=== PATIENT | male | born 2000 | race Caucasian/White ===

== ENCOUNTER 2023-12-23 07:28 | Emergency (ER) | payer OTHER, SELFPAY ==
[2023-12-23] VITALS (10 sets, daily range): BP systolic 82–114; BP diastolic 40–62; PULSE 73–160; RESP 15–28; TEMP 36.6; O2SAT 98; BMI 30.4
--- NOTE | ~2023-12-23 | XR_ITS ---
EXAMINATION: XR CHEST CLINICAL INFORMATION: Palpatations COMPARISON: None available. TECHNIQUE: Frontal view of the chest was obtained. FINDINGS: No significant abnormality is noted involving the heart, lungs, mediastinum, bony thorax or soft tissues. XR/XR chest 1V IMPRESSION: Unremarkable examination.
--- NOTE | 2023-12-23 07:40 | ECG_ITS ---
Test Reason : tachycardia Blood Pressure : / mmHG Vent. Rate : 142 BPM Atrial Rate : 142 BPM P-R Int : 210 ms QRS Dur : 086 ms QT Int : 286 ms P-R-T Axes : 022 084 018 degrees QTc Int : 439 ms Atrial fibrillation with rapid ventricular response Abnormal ECG No previous ECGs available Referred By: Dottie He Electronically Signed By:CARL PERRIN
[2023-12-23] MEDS: Metoprolol Tartrate 5 MG/5 ML VIAL IVPUSH ×2 (07:50→07:57)
--- NOTE | 2023-12-23 07:57 | ECG_ITS ---
Test Reason : tachy Blood Pressure : / mmHG Vent. Rate : 124 BPM Atrial Rate : 000 BPM P-R Int : 000 ms QRS Dur : 088 ms QT Int : 258 ms P-R-T Axes : 000 073 020 degrees QTc Int : 370 ms Atrial fibrillation with rapid ventricular response Abnormal ECG When compared with ECG of 23-DEC-2023 07:50, No significant changes seen Referred By: Dottie He Electronically Signed By:CARL PERRIN
--- NOTE | 2023-12-23 07:57 | ED_ITS ---
HPI - Arrhythmia/Palpitations General Chief Complaint: Arrhythmia/Palpitations Stated Complaint: Fast heart rate Time Seen by Provider: 12/23/23 07:35 Source: patient Mode of arrival: ambulatory Limitations: no limitations History of Present Illness HPI narrative: 23 yo male with no sig PMH but he notes his father has an irregular heart beat and is s/p ablation he also had a valve issue. He comes in as he was at home just getting ready for work when his heart started to race. He takes no drugs, no recent illness. He has no symptoms it came out of nowhere. This has never happened to him before. complaint: rapid heart beat and heart racing Onset (ago): minute(s) (30) Duration: constant Severity: severe Context: occurred during rest Associated symptoms: denies other symptoms Related Data Previous Rx's Medication Instructions Recorded metoprolol tartrate 25 mg tablet 12.5 mg (1/2 x 25 mg) PO BID #60 12/23/23 tabs Allergies Allergy/AdvReac Type Severity Reaction Status Date / Time No Known Allergies Allergy Unverified 07/13/20 17:20 [No Known Allergies*] Review of Systems 2 Review of Systems: Constitutional : No Weight loss, No Fever, No Chills ENT/Mouth : No sore throat, No Rhinorrhea Eyes: No Eye Pain, No Swelling Cardiovascular : no Chest Pain, pos SOB, no Dyspnea on Exertion, No Orthopnea, No Edema, pos Palpitations Respiratory : No Cough, No Sputum Gastrointestinal : no Nausea, No Vomiting, No Diarrhea, No abdominal Pain, No Hematochezia, No Melena Genitourinary : No Dysuria, No Urinary Frequency Musculoskeletal : No joint pain, No Myalgias, No Joint Swelling Skin : No Skin Lesions, No rash Neuro : No Weakness, No Numbness, No Dizziness, No Headache Psych : No Anxiety/Panic, No Depression All other systems reviewed and are negative [facility] Past Medical History Attestation statement: The following information was validated with the patient. Source: old records reviewed Medical History No pertinent past medical history Family History Family History (Updated 12/23/23 @ 09:25 by Jameson Ferrara MD) Father Arrhythmia H/O cardiac radiofrequency ablation Social History Social History (Updated 12/23/23 @ 09:25 by Jameson Ferrara MD) Alcohol intake: current Alcohol intake frequency: 0-2 drinks per day Patient Tobacco Use Status: Never used Tobacco Use of substances other than those prescribed or required for medical reasons: No Advance Directives: No Physical Exam 2 Vital Signs: Vital Signs: Last Vital Signs Temp 98 F 12/23/23 07:53 Pulse 73 12/23/23 11:49 Resp 28 H 12/23/23 11:49 BP 96/45 L 12/23/23 11:49 Pulse Ox 98 12/23/23 11:49 O2 Del Method Room Air 12/23/23 11:49 BMI result Body Mass Index 30.4 Appearance: Alert. Oriented X3. No acute distress. Eyes: Pupils equal, round and reactive to light. ENT: Pharynx normal. Neck: Normal inspection. Neck supple. CVS: irregular tachycardic heart rate and rhythm. Pulses normal. Respiratory: No respiratory distress. Breath sounds normal. Abdomen: Soft and nontender. Skin: Skin warm and dry. Normal skin color. Normal skin turgor. Extremities: No lower extremity edema. No calf ttp Neuro: Oriented X 3. No motor deficit. No sensory deficit. Course Course Course Narrative: 2nd EKG confirms afib HR maintaining below 120s cardiology notified 825am. pending normal labs start fleicanide 300mg and observe will figure out follow up and plan after medications metoprolol tartrate 50mg per korey 10am no cardioversion Reevaluation(s) Reevaluation #1: converted 1107am NSR okay to go before ECHO - given low BPs will put on 12.5mg BID and start dose tomorrow with parameters BP is on low side but has been he is asymptomatic Medications Administered Generic Name Dose Route Start Last Admin Trade Name Freq PRN Reason Stop Dose Admin Sodium Chloride 1,000 mls @ 999 mls/hr 12/23/23 11:15 12/23/23 11:05 Ns IV 12/23/23 12:15 999 mls/hr .Q1H1M MANOHAR Administration Discontinued Medications Generic Name Dose Route Start Last Admin Trade Name Freq PRN Reason Stop Dose Admin Flecainide Acetate 300 mg 12/23/23 08:46 12/23/23 09:25 Flecainide Acetate 50 Mg Tablet PO 12/23/23 08:47 300 mg ONCE ONE Administration Sodium Chloride 1,000 mls @ 999 mls/hr 12/23/23 08:00 12/23/23 08:01 Ns IV 12/23/23 09:00 999 mls/hr .Q1H1M MANOHAR Administration Metoprolol Tartrate 5 mg 12/23/23 07:54 12/23/23 07:50 Metoprolol Tartrate 5 Mg/5 Ml Vial IVPUSH 12/23/23 07:55 5 mg ONCE ONE Administration Metoprolol Tartrate 5 mg 12/23/23 07:54 12/23/23 07:57 Metoprolol Tartrate 5 Mg/5 Ml Vial IVPUSH 12/23/23 07:55 5 mg ONCE ONE Administration Metoprolol Tartrate 50 mg 12/23/23 09:59 12/23/23 10:08 Metoprolol Tartrate 50 Mg Tablet PO 12/23/23 10:00 50 mg ONCE ONE Administration Protocol Medical Decision Making Medical Decision Making MDM Narrative: 23 yo male with no sig PMH here with abrupt onset palpitations without sig symptoms other than heart racing tele showed irregular rate and ?flutter. He is asymptomatic. We tried vagal maneuvers initially on arrival but then I noted irregularity and felt this wasn't SVT. Lopressor x 2 was given and flutter waves were seen. Labs ordered. 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 12/23/23 08:11 12/23/23 08:11 Labs: Lab Results 12/23/23 Range/Units 08:11 WBC 5.9 (4.8-10.8) X10*3/uL RBC 5.23 (4.60-5.80) X10*6/uL Hgb 16.0 (14.0-18.0) g/dl Hct 43.7 (42.0-52.0) % MCV 83.6 (80.0-98.0) fL MCH 30.6 (27.0-33.0) pg MCHC 36.6 H (31.0-36.0) g/dl RDW 13.1 (11.0-16.0) % Plt Count 266 (160-400) X10*3/uL MPV 9.8 (9.4-12.4) fL Immature Gran % (Auto) 0.5 H (0.0-0.4) % Neut % (Auto) 66.0 (45-73) % Lymph % (Auto) 21.2 (20-40) % [place] % (Auto) 9.1 (2-11) % Eos % (Auto) 2.5 (0-4) % Baso % (Auto) 0.7 (0-2) % Lymph # (Auto) 1.3 (1.2-4.9) X10*3/uL [place] # (Auto) 0.5 (0.1-1.2) X10*3/uL Eos # (Auto) 0.2 (0.0-0.4) X10*3/uL Baso # (Auto) 0.0 (0.0-0.2) X10*3/uL Abs Immat Gran (auto) 0.03 (0.00-0.03) X10*3/uL Absolute Neuts (auto) 3.9 (2.0-8.3) x10*3/uL Absolute Nucleated RBC 0.000 (0.0-0.012) X10*3/uL Nucleated RBC % (auto) 0.0 (0.0-0.2) /100WBC Sodium 139 (135-145) mmol/L Potassium 3.9 (3.3-5.1) mmol/L Chloride 110 H (96-108) mmol/L Carbon Dioxide 24 (22-29) mmol/L Anion Gap 9 L (12-20) BUN 15 (9-16) mg/dL Creatinine 0.75 (0.5-1.4) mg/dL Estim Creat Clear Calc 170.4 Estimated GFR > 60 Random Glucose 113 (60-115) mg/dL Calcium 8.6 (8.4-10.2) mg/dL Magnesium 2.1 (1.6-2.6) mg/dL Total Bilirubin 0.7 (0.0-1.0) mg/dL Direct Bilirubin 0.3 (0.0-0.5) mg/dL AST 20 (5-37) U/L ALT 18 (0-40) U/L Alkaline Phosphatase 57 (39-117) U/L Troponin I High Sens < 2.7 (<3.5-35.0) ng/L Total Protein 6.5 (6.5-8.0) g/dL Albumin 3.8 (3.5-5.0) g/dL TSH 1.26 (0.32-4.0) uIU/mL Ethyl Alcohol < 10 mg/dL COVID-19 (ZEESHAN) Negative (Negative) COVID-19 Clin Com See Note Independent Interpretation I performed an independent interpretation of an: EKG and Plain X-Ray (normal ) Interpretation: Rate: 142 Rhythm: irregular tachcyardia Pingree: normal Normal QRS complex. ST T wave : no VAL qTC: 439 prior studies: no prior The study has been interpreted contemporaneously by me. EKG #2 Rate: 124 Rhythm: afib Pingree: normal Normal QRS complex. ST T wave : normal no VAL qTC: 370 prior studies: changed from prior The study has been interpreted contemporaneously by me. EKG #3 Rate: 80 Rhythm: NSR P[place]ree: normal Normal P waves. Normal NANCY. Normal QRS complex. ST T wave : inverted t waves V1, no VAL qTC: 417 prior studies: changed converted to NSR The study has been interpreted contemporaneously by me. . Radiology Impression Discussion of test interpretation with radiology: I have reviewed the radiologist's reading. Prescription Management I considered prescription management with: Other Critical Care Time Critical Care Time Critical Care Time: Yes Total Critical Care Time: 60 Attestation: repeat IV lopressor, consultation, repeat EKG, bedside assessments I attest to this time spent taking care of the patient Discharge Plan Discharge Clinical Impression: Atrial fibrillation Qualifiers: Atrial fibrillation type: unspecified Qualified Code(s): I48.91 - Unspecified atrial fibrillation Patient Disposition: Home, Self-Care Instructions: Metoprolol (By mouth), A-fib (Atrial Fibrillation) (ED) Additional Instructions: stay hydrated. get a blood pressure cuff. get a watch if possible or device that can help monitor your heart rate. you will be started on a new medication to keep your heart rate lower. you should return for elevated HR again > 120, chest pain, dizziness, shortness of breath. do not take the metoprolol if blood pressure is below 100 systolic (top number) or heart rate is below 60. only take 12.5mg daily if you feel dizzy or weak cardiology will call you to schedule appointment avoid alcohol, cocaine, caffeine intake, energy drinks, over the counter cold medications start the metoprolol tomorrow AM Prescriptions: New metoprolol tartrate 25 mg tablet 12.5 mg PO BID Qty: 60 0RF Rx Instructions: hold if blood pressure under 100 or less than 60 Stand Alone Forms: Work/School Release
[2023-12-23] MEDS: 0.9 % Sodium Chloride 1,000 ML 999 ML IV ×2 (08:01→11:05)
[2023-12-23 08:15] LABS: MANUAL DIFF FLAG NO
[2023-12-23 08:16] LABS: Basophils Percent Auto 0.7 % (0-2); Eosinophils Absolute Auto 0.2 X10*3/uL (0.0-0.4); Eosinophils Percent Auto 2.5 % (0-4); Hematocrit 43.7 % (42.0-52.0); Imm Gran Abs Auto 0.03 X10*3/uL (0.00-0.03); Imm Gran Pct Auto 0.5 % (0.0-0.4); Lymphocytes Absolute Auto 1.3 X10*3/uL (1.2-4.9); Lymphocytes Percent Auto 21.2 % (20-40); Mean Corpuscular HGB Conc 36.6 g/dl (31.0-36.0); Mean Corpuscular Hemoglobin 30.6 pg (27.0-33.0); Mean Corpuscular Volume 83.6 fL (80.0-98.0); Mean Platelet Volume 9.8 fL (9.4-12.4); Monocytes Absolute Auto 0.5 X10*3/uL (0.1-1.2); Monocytes Percent Auto 9.1 % (2-11); Neutrophils Absolute Auto 3.9 x10*3/uL (2.0-8.3); Platelet Count 266 X10*3/uL (160-400); Red Blood Count 5.23 X10*6/uL (4.60-5.80); Red Cell Distribution Width 13.1 % (11.0-16.0); White Blood Count 5.9 X10*3/uL (4.8-10.8)
[2023-12-23 08:40] LABS: Alanine Aminotransferase 18 U/L (0-40); Albumin Level 3.8 g/dL (3.5-5.0); Alkaline Phosphatase 57 U/L (39-117); Anion Gap 9 (12-20); Aspartate Amino Transferase 20 U/L (5-37); Bilirubin Direct 0.3 mg/dL (0.0-0.5); Bilirubin Total 0.7 mg/dL (0.0-1.0); Blood Urea Nitrogen 15 mg/dL (9-16); Calcium 8.6 mg/dL (8.4-10.2); Carbon Dioxide 24 mmol/L (22-29); Chloride 110 mmol/L (96-108); Creatinine Clr Calc Pharmacy 170.4; Estimated Glomerular Filt Rate > 60; Glucose Random 113 mg/dL (60-115); Magnesium 2.1 mg/dL (1.6-2.6); Potassium 3.9 mmol/L (3.3-5.1); Sodium 139 mmol/L (135-145); Total Protein 6.5 g/dL (6.5-8.0)
--- NOTE | 2023-12-23 08:40 | PM.CNCAR ---
History of Present Illness History of Present Illness Date of Service: 12/23/23 Chief complaint: Fast heart rate Narrative: This is a cardiology consultation regarding atrial fibrillation. Patient is generally healthy young male with no major issues. He states he was fine this morning but when he went to brush his teeth around 05:45, he started noticing heart fluttering. After that, he went to the ER and he is being currently evaluated. Initially, heart rate is almost 180/Min? or around that range and they thought was SVT but not clear. Then it seems that he tried vagal maneuvers and then some beta-blockers and they rather figured out it was more likely something like flutter or fibrillation. Patient himself does not have any history from cardiac standpoint. He states he is actually quite healthy and works out in the gym and has no symptoms whatsoever. Apart from palpitations he is otherwise feeling fine. His father had some sort of ablation in the past. They do not know all the details. Occasional alcohol use but he states he does not do binge drinking. Nonsmoker. Denies drugs. Review of Systems Review of Systems: Yes all other systems are reviewed and are negative Constitutional: Constitutional: Reports as per HPI and Reports no additional constitutional complaints Eyes: Eyes: Reports as per HPI and Denies no additional eye complaints ENT: Denies system reviewed and no additional complaints, except as documented and Reports as per HPI Cardiovascular: Cardiovascular: Reports as per HPI, Reports no additional cardiovascular complaints, Denies acrocyanosis, Denies cool extremities, Denies chest pain, Denies leg edema, Denies lightheadedness, Denies palpitations and Denies dyspnea Respiratory: Respiratory: Reports as per HPI, Denies no additional respiratory complaints and Denies dyspnea Gastrointestinal: Gastrointestinal: Reports as per HPI and Denies no additional gastrointestinal complaints Genitourinary: Genitourinary: Reports no additional male genitourinary complaints and Reports as per HPI Musculoskeletal: Musculoskeletal: Reports no additional musculoskeletal complaints and Reports as per HPI Integumentary/Breasts: Skin/Breast: Reports system reviewed and no additional complaints, except as docu Neurologic: Reports system reviewed and no additional complaints, except as documented and Reports as per HPI Psychiatric: Psychiatric: Reports no additional psychiatric complaints and Reports as per HPI Endocrine: Endocrine: Reports no additional endocrine complaints, Reports as per HPI and Denies palpitations Hematologic/Lymphatic: Hematologic/Lymphatic: Reports no additional hematologic/lymphatic complaints and Reports as per HPI Allergic/Immunologic: Allergic/Immunologic: Reports no additional allergic/immunologic complaints and Reports as per HPI [facility] Past Medical History Medical History No pertinent past medical history Family History Family History (Updated 12/23/23 @ 09:25 by Jameson Ferrara MD) Father Arrhythmia H/O cardiac radiofrequency ablation Social History Social History (Updated 12/23/23 @ 09:25 by Jameson Ferrara MD) Alcohol intake: current Alcohol intake frequency: 0-2 drinks per day Patient Tobacco Use Status: Never used Tobacco Meds Allergies Allergy/AdvReac Type Severity Reaction Status Date / Time No Known Allergies Allergy Unverified 07/13/20 17:20 [No Known Allergies*] Active Medications: Current Medications Sodium Chloride (Ns) 1,000 mls @ 999 mls/hr IV .Q1H1M MANOHAR Stop: 12/23/23 09:00 Last Admin: 12/23/23 08:01 Dose: 999 mls/hr Physical Exam Vital Signs: Vital Signs: Last Vital Signs Temp 98 F 12/23/23 07:53 Pulse 122 H 12/23/23 08:00 Resp 18 12/23/23 08:00 BP 98/59 L 12/23/23 08:00 Pulse Ox 98 12/23/23 08:00 BMI result Body Mass Index 30.4 Const: General: comfortable and no acute distress Orientation/consciousness: patient oriented x3 HEENT: Other: Unremarkable Head: Yes normal to inspection Neck: Neck: Yes normal visual inspection Chest: Chest palpation & inspection: normal inspection of the chest Resp: Auscultation: clear to auscultation bilaterally Cardio: Palpation: normal PMI Heart sounds: S1 normal heart sound present, S2 normal heart sound present, no gallops, no murmurs and no rubs GI: Palpation (GI): Soft to palpation Back/Spine/Pelvis: Other: unremarkable Skin: General skin exam: no rashes or lesions noted Neuro: General: patient oriented x3 Extrem: General: Yes normal to inspection Psych: Mental Status: mental status grossly normal Objective Labs and Meds 12/23/23 08:11 12/23/23 08:11 Lab results: Laboratory Results - last 24 hr 12/23/23 08:11 WBC 5.9 RBC 5.23 Hgb 16.0 Hct 43.7 MCV 83.6 MCH 30.6 MCHC 36.6 H RDW 13.1 Plt Count 266 MPV 9.8 Immature Gran % (Auto) 0.5 H Neut % (Auto) 66.0 Lymph % (Auto) 21.2 [place] % (Auto) 9.1 Eos % (Auto) 2.5 Baso % (Auto) 0.7 Lymph # (Auto) 1.3 [place] # (Auto) 0.5 Eos # (Auto) 0.2 Baso # (Auto) 0.0 Abs Immat Gran (auto) 0.03 Absolute Neuts (auto) 3.9 Absolute Nucleated RBC 0.000 Nucleated RBC % (auto) 0.0 ECG Interpretation: EKG with atrial fibrillation rate of 142/Min. Repeat EKGs also similar. Imaging Radiologist's impression: Impressions Chest X-Ray 12/23/23 08:18 IMPRESSION: Unremarkable examination. Assessment and Plan (1) Atrial fibrillation with rapid ventricular response: Status: Acute Plan Labs show unremarkable high sensitivity troponin. Either alcohol level less than 10. Other labs are mostly okay. COVID is negative. Chest x-ray unremarkable. We can try flecainide 300 mg p.o. now. If that does not help, may need cardioversion. Echocardiogram. Discussed with Dr. He. Procedures Date of Service Date of Service: 12/23/23
[2023-12-23 08:43] LABS: Troponin-I High Sensitivity < 2.7 ng/L (<3.5-35.0)
[2023-12-23 08:53] LABS: Ethanol < 10 mg/dL
[2023-12-23 08:56] LABS: TSH reflex Free T4 1.26 uIU/mL (0.32-4.0)
[2023-12-23 08:57] LABS: COVID-19 Test Negative (Negative); IDNOW Serial# 152EDE1D
[2023-12-23] MEDS: Flecainide Acetate 50 MG TABLET 300 MG PO (09:25)
--- NOTE | 2023-12-23 09:27 | PC.NURSE ---
A FLUTTER ON MONITOR, SKIN WPD, MEDICATED ORDERED, NAD, NO COMPLAINTS
[2023-12-23] MEDS: Metoprolol Tartrate 50 MG TABLET PO (10:08)
--- NOTE | 2023-12-23 11:07 | ECG_ITS ---
Test Reason : CONVERSION TO NSR Blood Pressure : / mmHG Vent. Rate : 080 BPM Atrial Rate : 080 BPM P-R Int : 178 ms QRS Dur : 102 ms QT Int : 362 ms P-R-T Axes : 077 091 037 degrees QTc Int : 417 ms Normal sinus rhythm Rightward axis Borderline ECG When compared with ECG of 23-DEC-2023 08:05, Sinus rhythm has replaced Atrial fibrillation Vent. rate has decreased BY 44 BPM Referred By: Dottie He Electronically Signed By:CARL PERRIN
--- NOTE | 2023-12-23 11:11 | PC.NURSE ---
SR ON MONITOR, NAD,. NO COMPLAINTS
== END 2023-12-23 11:57 | disposition home or self-care (01) ==
PROVIDERS: Emergency Provider Emergency Medicine; PCP Pediatrics
DX: I48.91 Unspecified atrial fibrillation (principal); I49.9 Cardiac arrhythmia, unspecified; R00.2 Palpitations; Z11.52 Encounter for screening for COVID-19; Z79.899 Other long term (current) drug therapy
CPT/HCPCS: 71045; 80048; 80076; 80307; 83735; 84443; 84484; 85025; 87635; 93005; 99285

== ENCOUNTER → 2023-12-23 08:04 | Outpatient (BNV) | payer OTHER, SELFPAY | PROVIDERS: Emergency Provider Emergency Medicine; PCP Pediatrics; Visit Provider Internal Medicine | DX: I48.91 Unspecified atrial fibrillation (principal); R94.31 Abnormal electrocardiogram [ECG] [EKG] | CPT/HCPCS: 93010; 99223 ==

== ENCOUNTER → 2024-01-16 14:59 | Outpatient (REF) | payer OTHER, SELFPAY ==
--- NOTE | 2024-01-16 15:02 | HM_ITS ---
* Total monitoring time 3 days. * Underlying rhythm is sinus with an average rate of 82/Min. Range 43 to 171/Min. * Rare supraventricular ectopy. * One episode of ventricular couplets. * No significant pauses or AV blocks. * Patient marker used 3 times in association with sinus rhythm and sinus tachycardia. No diary events. MTDD
== END ==
LOC: HO.CARD 14:59
PROVIDERS: Visit Provider Internal Medicine
DX: I48.91 Unspecified atrial fibrillation (principal)
CPT/HCPCS: 93242

== ENCOUNTER → 2024-01-16 15:02 | Outpatient (BNV) | payer OTHER, SELFPAY | PROVIDERS: Visit Provider Internal Medicine | DX: I48.91 Unspecified atrial fibrillation (principal) | CPT/HCPCS: 93244 ==

== ENCOUNTER → 2024-01-21 08:59 | Outpatient (REF) | payer OTHER, SELFPAY ==
--- NOTE | 2024-01-21 09:02 | CA_ITS ---
Transthoracic Echocardiogram Patient (Last, First, Middle): Cameron Schroeder W Gender: Male Date of : 2000 Age: 23 Procedure Date: 01/21/2024 Procedure Type: Transthoracic Echocardiogram Location: OP Height: 170.18 cm Weight: 88.45 kg BSA: 2.00 m2 Heart Rate: bpm BP: 108 / 68 mmHg Police Clerk: TO Referring MD: Jameson Ferrara MD Water Tanker Driver: Adam Ascencio MD Symptoms: I48.91 - Unspecified atrial fibrillation Study Quality: Good ECG Rhythm: Sinus Conclusions: - 1. Mildly reduced LV ejection fraction 45-50% 2. Normal cardiac valvular Doppler 3. No gross pericardial effusion Findings Procedure Information Contrast agent, definity, is being given per protocol without apparent complications. Left Ventricle Normal left ventricular cavity size. There is normal left ventricular wall thickness. The left ventricular systolic function is mildly decreased. The visually estimated ejection fraction is between 45-50%. Spectral Doppler is indicative of a normal filling pattern. Peak GLS is -15.3%, mildly reduced. Right Ventricle Normal right ventricular cavity size and systolic function. Atria The left atrium is normal in size. There is no evidence of interatrial shunt. The right atrium is normal in size. Aortic Valve Normal aortic valve structure and function. There is no aortic valve stenosis. There is no aortic valve regurgitation. Mitral Valve Normal mitral valve structure and function. There is trace mitral valve regurgitation. There is no mitral valve stenosis. Pulmonic Valve The pulmonic valve is likely normal. There is trace to mild pulmonic valve regurgitation. Tricuspid Valve Normal tricuspid valve structure. There is no tricuspid valve regurgitation. Tricuspid regurgitation envelope is inadequate for calculation of right ventricular systolic pressure. Normal right atrial pressure. Great Vessels All visible segments of the aorta are normal in size. The pulmonary artery was not well visualized. Venous The inferior vena cava is normal in size and collapses greater than 50% with inspiration. Pericardium/Pleural There is no evidence of pericardial effusion. Prior Study Comparison No prior study available for comparison. Measurements 2D Linear Measurements IVSd: 0.77 0.6-0.9/0.6-1.0 cm LVIDd: 5.23 3.9-5.3/4.2-5.9 cm LVIDd Index: 2.62 2.4-3.2/2.2-3.1 cm/m2 LVIDs: 3.65 2.0-3.6 cm LVPWd: 0.85 0.7-1.1 cm LA Diam: 3.40 2.7-3.8/3.0-4.0 cm LAIDs Index: 1.70 1.5-2.3 cm/m2 LV Mass: 186.08 67-162/88-224 g LV Mass Index: 93.04 43-95/49-115 g/m2 LVOT Diam: 2.30 3.0+(-)1.3 cm 2D Systolic Function EF 4C: 46.00 >55% EF 2C: 49.30 >55% EF BiP: 48.10 >55% Mitral Valve MV Pk E: 0.66 MV PK A: 0.39 MV Decel Time: 202.00 E/A: 1.70 E'Lateral: 15.90 E'Medial: 9.36 E/E' Med: 7.00 E/E' Lat: 4.10 PHT: 59.00 MVA PHT: 3.73 Decel Oliver: 3.24 LVOT LVOT Pk Tip: 0.83 LVOT Mn Tip: 0.52 LVOT VTI: 0.16 LVOT Pk Grad: 3.00 LVOT Mn Grad: 1.00 LVOT Diam: 2.30 LVOT Area: 4.15 Diastolic Function MV Pk E: 0.66 MV Pk A: 0.39 E/A: 1.70 E'Medial: 9.36 E/E' Med: 7.00 E' Laterial: 15.90 E/E' Lat: 4.10 Right Ventricle TAPSE (mm): 18.00 TVS' Tip: 10.00 Tricuspid Valve RA Press: 3.00 Great Vessels Aorta Sinus of Valsalva: 3.33 2.0-3.5 cm Ao Asc: 3.00 2.1-3.4 cm Updated in Other Vendor System with Status of Final Adam Ascencio MD electronically signed on 01/21/2024 2:36:31 PM with status of Final
== END ==
LOC: HO.CARD 08:59
PROVIDERS: PCP Pediatrics; Visit Provider Internal Medicine
DX: I48.91 Unspecified atrial fibrillation (principal)
CPT/HCPCS: 93306; 93356; Q9957

== ENCOUNTER → 2024-01-21 09:02 | Outpatient (BNV) | payer OTHER, SELFPAY | PROVIDERS: PCP Pediatrics; Visit Provider Internal Medicine Cardiovascular Disease | DX: I48.91 Unspecified atrial fibrillation (principal) | CPT/HCPCS: 93306; 93356 ==

== ENCOUNTER 2024-01-23 15:01 | Outpatient (AMB) | payer OTHER, SELFPAY ==
--- NOTE | 2024-01-23 15:08 | A.OFFVIS_ITS ---
Intake Vital Signs 01/23/24 15:10 Height 5 ft 8 in Weight 191 lb BMI 29.0 BP 132/78 Blood Pressure Location Lt brachial Position Sitting Pulse 78 Intake Visit Reasons: inpatient follow up/ testing Intake Note: PT TURNED IN HOLTER ON 01/23/24 PT FEELS GOOD Allergies No Known Allergies [No Known Allergies*] Allergy (Unverified 07/13/20 17:20) Medication List - Last Reconciled 01/23/24 by Roxanne Palm NP metoprolol tartrate 12.5 mg (1/2 x 25 mg) PO BID HPI HPI Comments History of Present Illness Details 23-year-old male presents today to [facility]- after testing and being in the hospital. He was seen in the emergency room for fast heart rates and fluttering and was found to be in atrial fibrillation with rapid ventricular response. He reports he has had no fluttering, rapid rates, chest pains, dizziness, or shortness of breath. He was prescribed metoprolol and has been tolerating it. [facility] Medical History No pertinent past medical history Family History (Updated 12/23/23 @ 09:25 by Jameson Ferrara MD) Father Arrhythmia H/O cardiac radiofrequency ablation Social History (Updated 12/23/23 @ 09:25 by Jameson Ferrara MD) Alcohol intake: current Alcohol intake frequency: 0-2 drinks per day Patient Tobacco Use Status: Never used Tobacco Review of Systems Const Denies weakness ENT Denies dizziness Card Denies chest pain, Denies chest pain with activity, Denies syncope, Denies rapid heart rate, Denies pedal edema, Denies edema, Denies leg edema, Denies lightheadedness, Denies palpitations, Denies dyspnea, Denies dyspnea on exertion and Denies orthopnea Resp Denies cough, Denies dyspnea and Denies dyspnea on exertion GI Denies hematochezia and Denies change in stool character Musc Denies abnormal gait, Denies muscle cramps, Denies muscle weakness, Denies numbness, Denies radiating pain into limb and Denies tingling Neuro Denies abnormal gait, Denies dizziness, Denies syncope, Denies numbness, Denies tingling and Denies weakness Endo Denies palpitations Physical Exam Vital Signs: Last Vital Signs Pulse 78 01/23/24 15:10 BP 132/78 01/23/24 15:10 BMI result Body Mass Index 29.0 Const General: healthy appearing and no acute distress Orientation/consciousness: patient oriented x3 HEENT Head: Yes normal to inspection Eyes General: appearance normal, both eyes and all related structures Neck Neck: Yes normal visual inspection Chest Chest palpation & inspection: normal inspection of the chest Resp Effort & Inspection: normal respiratory effort Auscultation: clear to auscultation bilaterally Cardio Jugular venous distension: no JVD Palpation: normal PMI Rate: regular rate Rhythm: regular rhythm Heart sounds: S1 normal heart sound present, S2 normal heart sound present, no click, no gallops, no murmurs and no rubs GI Inspection: Yes normal to inspection Palpation (GI): Soft to palpation Skin General skin exam: no rashes or lesions noted Neuro General: patient oriented x3 Extrem General: Yes normal to inspection Psych Appearance: grossly normal Assessment & Plan Assessment & Plan (1) Atrial fibrillation with rapid ventricular response: Code(s): I48.91 - Unspecified atrial fibrillation Plan Patient returned holter today - will wait for results. Echocardiogram showed mildly reduced LV ejection fraction 45-50%. Will touch base with Dr. Ferrara regarding further testing and wait for the results. On metorpolol tartrate - continue for rate control - todays rate 78 bpm. Sinus by auscultation. Coding Level of Care Code Est Pt Level 3 (43655) Diagnoses Atrial fibrillation with rapid ventricular response I48.91
[2024-01-23 15:10] VITALS: BP 132/78; PULSE 78; BMI 29.0
== END 2024-01-23 15:42 | disposition home or self-care (01) ==
PROVIDERS: PCP Pediatrics; Visit Provider Nurse Practitioner
DX: I48.91 Unspecified atrial fibrillation (principal)
CPT/HCPCS: 99213

== ENCOUNTER → 2024-01-23 15:01 | Outpatient (BNVA) | payer OTHER, SELFPAY | PROVIDERS: PCP Pediatrics; Visit Provider Nurse Practitioner ==

== ENCOUNTER → 2024-03-02 15:55 | Outpatient (REF) | payer OTHER, SELFPAY | LOC: HO.SL 15:55 | PROVIDERS: PCP Pediatrics; Visit Provider Nurse Practitioner | DX: G47.10 Hypersomnia, unspecified (principal); R06.83 Snoring | CPT/HCPCS: 95806 ==

== ENCOUNTER → 2024-03-02 16:03 | Outpatient (BNV) | payer OTHER, SELFPAY | PROVIDERS: PCP Pediatrics; Visit Provider Internal Medicine | DX: R06.83 Snoring (principal); G47.10 Hypersomnia, unspecified | CPT/HCPCS: 95806 ==

== ENCOUNTER 2024-04-30 07:14 | Emergency (ER) | payer OTHER, SELFPAY ==
[2024-04-30] VITALS (13 sets, daily range): BP systolic 100–141; BP diastolic 63–88; PULSE 77–156; RESP 12–24; TEMP 36.5–36.9; O2SAT 96–100; BMI 30.4
--- NOTE | 2024-04-30 | ECG_ITS ---
Test Reason : afib Blood Pressure : / mmHG Vent. Rate : 131 BPM Atrial Rate : 000 BPM P-R Int : 000 ms QRS Dur : 088 ms QT Int : 258 ms P-R-T Axes : 000 073 012 degrees QTc Int : 380 ms Atrial fibrillation with rapid ventricular response Abnormal ECG When compared with ECG of 30-APR-2024 07:16, No significant change was found Referred By: Generic ED Physician Electronically Signed By:CARL PERRIN
--- NOTE | 2024-04-30 | ECG_ITS ---
Test Reason : palpitation Blood Pressure : / mmHG Vent. Rate : 123 BPM Atrial Rate : 000 BPM P-R Int : 000 ms QRS Dur : 088 ms QT Int : 266 ms P-R-T Axes : 000 072 009 degrees QTc Int : 380 ms Atrial fibrillation with rapid ventricular response Abnormal ECG When compared with ECG of 23-DEC-2023 11:17, Atrial fibrillation has replaced Sinus rhythm Vent. rate has increased BY 43 BPM Referred By: Kristina Taylor Electronically Signed By:CARL PERRIN
[2024-04-30 07:38] LABS: MANUAL DIFF FLAG NO
[2024-04-30 07:41] LABS: Basophils Absolute Auto 0.1 X10*3/uL (0.0-0.2); Eosinophils Absolute Auto 0.1 X10*3/uL (0.0-0.4); Eosinophils Percent Auto 1.6 % (0-4); Hematocrit 46.2 % (42.0-52.0); Hemoglobin 16.8 g/dl (14.0-18.0); Imm Gran Abs Auto 0.03 X10*3/uL (0.00-0.03); Imm Gran Pct Auto 0.4 % (0.0-0.4); Lymphocytes Absolute Auto 2.1 X10*3/uL (1.2-4.9); Lymphocytes Percent Auto 30.8 % (20-40); Mean Corpuscular HGB Conc 36.4 g/dl (31.0-36.0); Mean Corpuscular Hemoglobin 30.7 pg (27.0-33.0); Mean Corpuscular Volume 84.5 fL (80.0-98.0); Mean Platelet Volume 9.7 fL (9.4-12.4); Monocytes Absolute Auto 0.7 X10*3/uL (0.1-1.2); Neutrophils Absolute Auto 3.9 x10*3/uL (2.0-8.3); Neutrophils Percent Auto 56.2 % (45-73); Platelet Count 250 X10*3/uL (160-400); Red Blood Count 5.47 X10*6/uL (4.60-5.80); White Blood Count 6.9 X10*3/uL (4.8-10.8)
--- NOTE | 2024-04-30 07:43 | PC.NURSE ---
Pt here reporting he was seen in nov with new onset afib, pt reporting he followed up with cardiology and had a halter monitor, all of those times he has been in a NSR, they gave him PRN metoprolol to take if he felt that his HR was elevated again. Pt woke up this morning feeling palpitations, denies CP/SOB/n/v/d/grider. Pt HR is ranging from 101-156. Pt reports he had a couple of beers yesterday but denies drug use/change in activities from baseline.
--- NOTE | 2024-04-30 07:55 | ED.ARRPALP ---
HPI - Arrhythmia/Palpitations General Chief Complaint: Arrhythmia/Palpitations Stated Complaint: Fast heart rate Time Seen by Provider: 04/30/24 07:43 Source: patient Mode of arrival: ambulatory Limitations: no limitations History of Present Illness ED Provider: Dr. Austen Moses HPI narrative: 23-year-old male with a history of atrial fibrillation who presents emergency department for evaluation of palpitations. The patient states he woke up this morning he felt like his heart was skipping beats. He also states his heart was going fast and slow. The patient was 1st diagnosed with atrial fibrillation 12/23/2023. At that time he had an echocardiogram that revealed a reduced EF of 45-50%. Patient subsequently had a Holter monitor on 01/16/2024 which was unremarkable and a repeat echocardiogram which revealed no change in his EF. He had a sleep study for hypersomnia which was unremarkable. Patient states that he was scheduled for MRI of the heart which is scheduled for next week. He denied fever, chills, chest pain, shortness of breath, dyspnea on exertion, nausea, vomiting, lightheadedness or dizziness. Related Data Previous Rx's ?Medication ?Instructions ?Recorded metoprolol tartrate 25 mg tablet 12.5 mg (1/2 x 25 mg) PO BID #60 12/23/23 tabs apixaban 5 mg tablet (Eliquis) 5 mg PO Q12H 30 days #60 tabs 04/30/24 flecainide 50 mg tablet 50 mg PO Q12H 30 days #60 tabs 04/30/24 metoprolol tartrate 25 mg tablet 12.5 mg (1/2 x 25 mg) PO Q12H 30 04/30/24 days #30 tabs Allergies Allergy/AdvReac Type Severity Reaction Status Date / Time No Known Allergies Allergy Unverified 04/30/24 07:26 [No Known Allergies*] Review of Systems Review of Systems: Yes all other systems are reviewed and are negative PMFSH Past Medical History Medical History (Updated 04/30/24 @ 15:21 by Austen Moses MD) Cardiomyopathy No pertinent past medical history Family History Family History (Updated 12/23/23 @ 09:25 by Jameson Ferrara MD) Father Arrhythmia H/O cardiac radiofrequency ablation Social History Social History (Updated 12/23/23 @ 09:25 by Jameson Ferrara MD) Alcohol intake: current Alcohol intake frequency: holidays/special occasions only Alcohol type: beer Patient Tobacco Use Status: Never used Tobacco Advance Directives: No Physical Exam Vital Signs: Vital Signs: Last Vital Signs Temp 97.9 F 04/30/24 12:50 Pulse 77 04/30/24 14:59 Resp 12 04/30/24 14:59 BP 121/78 04/30/24 14:59 Pulse Ox 100 04/30/24 14:59 O2 Del Method Nasal Cannula 04/30/24 14:59 O2 Flow Rate 2 04/30/24 14:59 Oxygen Flow Rate 2 04/30/24 14:29 BMI result Body Mass Index 30.4 Vital signs were normal. Exam: General: Awake, alert in no distress Head: Normocephalic, atraumatic EENT: PERRL, Lids normal, sclera normal, conjunctiva normal, nose normal , ears normal, throat without erythema or exudates Neck: Supple, no adenopathy Lung: breath sounds symmetric, no wheezing, rales or rhonchi Chest: symmetric movement, nontender Heart: Irregularly irregular heart rate irregular irregular rhythm, normal S1, S2 no murmurs or rubs Abdomen: soft, non-tender, nondistended, normal bowel sounds Back: no vertebral tenderness, no CVAT Extremities: no deformities, moves all extremities symmetrically Neuro: Awake, alert, oriented, normal speech, cranial nerves intact, moves all extremities symmetrically Psych: Pleasant, cooperative Medications Administered Discontinued Medications Generic Name Dose Route Start Last Admin Trade Name Freq PRN Reason Stop Dose Admin Apixaban 5 mg 04/30/24 12:12 04/30/24 12:26 Apixaban 5 Mg Tablet PO 04/30/24 12:13 5 mg ONCE ONE Administration Diltiazem HCl 10 mg 04/30/24 08:18 04/30/24 08:27 Diltiazem Hcl 50 Mg/10 Ml Vial IVPUSH 04/30/24 08:19 10 mg STAT STA Administration Fentanyl 100 mcg 04/30/24 12:12 04/30/24 12:39 Fentanyl Citrate/Pf 100 Mcg/2 Ml Vial IVPUSH 04/30/24 12:13 Not Given ONCE ONE Protocol Fentanyl 100 mcg 04/30/24 14:03 04/30/24 14:08 Fentanyl Citrate/Pf 100 Mcg/2 Ml Vial IVPUSH 04/30/24 14:04 100 mcg ONCE ONE Administration Protocol Flecainide Acetate 300 mg 04/30/24 08:28 04/30/24 08:52 Flecainide Acetate 50 Mg Tablet PO 04/30/24 08:29 300 mg ONCE ONE Administration Sodium Chloride 1,000 mls @ 999 mls/hr 04/30/24 12:13 04/30/24 15:42 Ns IV 04/30/24 13:13 Infused .Q1H1M STA Infusion Ketamine HCl 90.718 mg 04/30/24 12:12 04/30/24 12:39 Ketamine Hcl/Ns 50 Mg/5 Ml Syringe 1 mg/kg (90.718 mg) 04/30/24 12:13 Not Given IVPUSH ONCE ONE Ketamine HCl 90.718 mg 04/30/24 14:03 04/30/24 14:08 Ketamine Hcl/Ns 50 Mg/5 Ml Syringe 1 mg/kg (90.718 mg) 04/30/24 14:04 90.718 mg IVPUSH Administration ONCE ONE Lorazepam 1 mg 04/30/24 15:04 04/30/24 15:08 Lorazepam 2 Mg/Ml Vial IVPUSH 04/30/24 15:05 1 mg STAT STA Administration Medical Decision Making Medical Decision Making MDM Narrative: 23-year-old male with a history of atrial fibrillation 1st diagnosed 12/23/2023 with a low EF of 45-50% who presents emergency department for evaluation palpitations. Vital signs revealed an elevated heart rate of 123 otherwise unremarkable pain Patient's physical exam and EKG are consistent with atrial fibrillation. Differential diagnosis: ?Includes but is not limited to myocardial infarction, myocardial ischemia, cardiomyopathy, atrial fibrillation, atrial flutter, electrolyte abnormalities, anemia, hyperthyroidism Following evaluation was ordered: CBC, CMP, PT/INR, PTT, magnesium, ethanol level, troponin, COVID-19, influenza, RSV Patient was initially treated with the following: Diltiazem 10 mg IV, flecainide 300 mg orally, normal saline x1 L Course: 15:31 My interpretation patient's laboratory evaluation is as follows: CBC was normal. PT/INR elevated 17.1 and 1.4. Ethanol was below detectable limits. COVID-19, influenza and RSV were negative. I did consult the patient's water plant pump operator supervisor, Dr. Ferrara who agreed with chemical cardioversion and if unsuccessful after 4 hours, proceed with electrical cardioversion. He also recommended giving Eliquis 5 mg orally. Patient did not cardiovert with oral flecainide after 4 hours of cardiac monitoring. Patient did however change from atrial fibrillation to an atrial flutter with a 3-[address] Ferrara and recommended 1-2 more hours of observed to see if the patient converts however he remained in atrial flutter. Therefore the patient was given procedural sedation with ketamine 1 milligram/kilogram IV and fentanyl 100 mcg IV. He was then successful cardioverted with 120 joules. The patient did have emergence phenomenon from ketamine and was given Ativan [address] Ferrara recommended that the patient be started on Eliquis 5 mg q.12 hours, flecainide 50 mg q.12 hours and continue on his metoprolol tartrate 12.5 mg q.12 hours. I did prescribe these medications for the patient. Patient was given verbal and printed instructions and discharged home Admission/Observation Consideration of admission/observation: Escalation of care including admission/observation considered Consult Healthcare Provider Management of the patient was discussed with: Cosmetic Surgeon (Stock Order Lister, Dr. Ferrara) Lab Data MDM Lab Attestation statement: I reviewed the patient's lab results. 04/30/24 07:33 04/30/24 07:33 Labs: Lab Results 04/30/24 04/30/24 Range/Units 07:33 08:40 WBC 6.9 (4.8-10.8) X10*3/uL RBC 5.47 (4.60-5.80) X10*6/uL Hgb 16.8 (14.0-18.0) g/dl Hct 46.2 (42.0-52.0) % MCV 84.5 (80.0-98.0) fL MCH 30.7 (27.0-33.0) pg MCHC 36.4 H (31.0-36.0) g/dl RDW 13.0 (11.0-16.0) % Plt Count 250 (160-400) X10*3/uL MPV 9.7 (9.4-12.4) fL Immature Gran % (Auto) 0.4 (0.0-0.4) % Neut % (Auto) 56.2 (45-73) % Lymph % (Auto) 30.8 (20-40) % [place] % (Auto) 10.0 (2-11) % Eos % (Auto) 1.6 (0-4) % Baso % (Auto) 1.0 (0-2) % Lymph # (Auto) 2.1 (1.2-4.9) X10*3/uL [place] # (Auto) 0.7 (0.1-1.2) X10*3/uL Eos # (Auto) 0.1 (0.0-0.4) X10*3/uL Baso # (Auto) 0.1 (0.0-0.2) X10*3/uL Abs Immat Gran (auto) 0.03 (0.00-0.03) X10*3/uL Absolute Neuts (auto) 3.9 (2.0-8.3) x10*3/uL Absolute Nucleated RBC 0.000 (0.0-0.012) X10*3/uL Nucleated RBC % (auto) 0.0 (0.0-0.2) /100WBC PT 17.1 H (11.1-13.3) SEC INR 1.4 H (0.9-1.1) Sodium 141 (135-145) mmol/L Potassium 4.2 (3.3-5.1) mmol/L Chloride 108 (96-108) mmol/L Carbon Dioxide 25 (22-29) mmol/L Anion Gap 12 (12-20) BUN 15 (9-16) mg/dL Creatinine 0.90 (0.5-1.4) mg/dL Estim Creat Clear Calc 142.0 Estimated GFR > 60 Random Glucose 95 (60-115) mg/dL Calcium 9.5 D (8.4-10.2) mg/dL Magnesium 2.1 (1.6-2.6) mg/dL Total Bilirubin 0.7 (0.0-1.0) mg/dL AST 19 (5-37) U/L ALT 26 (0-40) U/L Alkaline Phosphatase 56 (39-117) U/L Troponin I High Sens < 2.7 (<3.5-35.0) ng/L Total Protein 7.1 (6.5-8.0) g/dL Albumin 4.3 (3.5-5.0) g/dL TSH 2.27 (0.32-4.0) uIU/mL Ethyl Alcohol < 10 mg/dL Influenza Type A (PCR) NEGATIVE (Negative) Influenza Type B (PCR) NEGATIVE (Negative) RSV RNA Qual (PCR) NEGATIVE (Negative) SARS-CoV-2 RNA (RT-PCR) NEGATIVE (Negative) Independent Interpretation I performed an independent interpretation of an: EKG Interpretation: EKG 1: 07:16 hours: Atrial fibrillation with a ventricular rate of 123, normal QRS duration QTC interval, no ST segment elevation, no ST segment depression, no significant T-wave abnormalities EKG 2: 07:28 hours: Atrial fibrillation with a ventricular rate of 131, normal QRS duration and QTC interval, no ST segment elevation, no ST segment depression, no significant T-wave abnormalities EKG 3: 12:32 hours: Atrial flutter with a rate of 118, prolonged QRS duration with normal QTC interval, no ST segment elevation, no ST segment depression, no significant T-wave abnormalities EKG 4: 14:17 hours: Normal sinus rhythm with a rate of 91, normal [place] interval, prolonged QRS duration of 108 milliseconds, normal QTC intervals, no ST segment elevation, no ST segment depression, no significant T-wave abnormalities, no PACs, no PVCs Independent Historian Clinical information obtained from an independent historian. History obtained from or confirmed by: Parent (Mother and father) External Record Review External record reviewed: Office record Procedures Procedure Narrative Procedure Narrative: Electrical cardioversion with procedural sedation. I did discuss procedural sedation with ketamine and fentanyl with the patient as well as cardioversion. The patient gave signed written consent for both procedures. Patient was placed on a cardiac and O2 saturation monitor. He was given oxygen 2 L via nasal cannula. Patient was also placed on an end-tidal CO2 monitor. Respiratory therapy was present at all times during the procedure. Patient had a nurse monitoring his vital signs in our nurse administering medications. The cardiac conversion/defibrillation pad replaced on the chest by me. Time-out was performed prior to the procedure. Patient was given ketamine 100 mg IV and fentanyl 1 100 mcg IV. After proximally 2 minutes the patient was sufficiently sedated and he was cardioverted with 120 joules. Patient repeat EKG was consistent with a sinus rhythm. Patient did have emergence phenomenon and was crying and appeared to be frightened and was treated with Ativan 1 mg IV. Patient eventually returned to his baseline. Critical Care Time Critical Care Time Critical Care Time: Yes Total Critical Care Time: 35 Attestation: Critical Care: The patient was critically ill with a high probability of imminent or life threatening deterioration. I spent greater than 30 minutes of discontinuous time evaluating the patient,delivering critical care at the bedside, discussing and evaluating pertinent data with consultants. Critical care time does not include time spent performing separately billable procedures or teaching. Total time spent performing critical care was 35 minutes. Discharge Plan Discharge Clinical Impression: Atrial fibrillation with rapid ventricular response, Encounter for cardioversion procedure Atrial flutter Qualifiers: Atrial flutter type: unspecified Qualified Code(s): I48.92 - Unspecified atrial flutter Patient Disposition: Home, Self-Care Instructions: A-fib (Atrial Fibrillation) (ED) Additional Instructions: Your blood work was unremarkable. Your EKG revealed atrial fibrillation with a rapid rate and atrial flutter We did give you flecainide 30 mg orally and Cardizem 10 mg IV but you did not go back into a normal beating rhythm therefore your cardioverted (your heart was shocked) successfully here in the emergency department. Your water plant pump operator supervisor, Dr. Ferrara and wants you to take the following medications Eliquis (apixaban) 5 mg twice a day-this is a blood thinner to help prevent blood clots from forming in your ventricles. Flecainide 50 mg twice a day, this is a medication to try to keep you out of atrial fibrillation. He also wants you to take metoprolol 12.5 mg twice a day on a regular basis and not just as needed for rapid heart rates Follow-up with Dr. Ferrara, call his office on Friday to schedule a follow-up appointment. Please return to the emergency department if your symptoms get worse or if you develop any symptoms that are concerning to you. Please follow the printed procedural sedation instructions. Prescriptions: New flecainide 50 mg tablet 50 mg PO Q12H 30 Days Qty: 60 0RF Eliquis 5 mg tablet 5 mg PO Q12H 30 Days Qty: 60 0RF metoprolol tartrate 25 mg tablet 12.5 mg PO Q12H 30 Days Qty: 30 0RF No Action metoprolol tartrate 25 mg tablet 12.5 mg PO BID Qty: 60 0RF Rx Instructions: hold if blood pressure under 100 or less than 60 Print Language: Uzbek
[2024-04-30 08:00] LABS: Troponin-I High Sensitivity < 2.7 ng/L (<3.5-35.0)
[2024-04-30 08:02] LABS: Alanine Aminotransferase 26 U/L (0-40); Albumin Level 4.3 g/dL (3.5-5.0); Alkaline Phosphatase 56 U/L (39-117); Anion Gap 12 (12-20); Aspartate Amino Transferase 19 U/L (5-37); Bilirubin Total 0.7 mg/dL (0.0-1.0); Blood Urea Nitrogen 15 mg/dL (9-16); Calcium 9.5 mg/dL (8.4-10.2); Carbon Dioxide 25 mmol/L (22-29); Chloride 108 mmol/L (96-108); Estimated Glomerular Filt Rate > 60; Ethanol < 10 mg/dL; Glucose Random 95 mg/dL (60-115); Magnesium 2.1 mg/dL (1.6-2.6); Potassium 4.2 mmol/L (3.3-5.1); Sodium 141 mmol/L (135-145); Total Protein 7.1 g/dL (6.5-8.0)
[2024-04-30] MEDS: dilTIAZem HCL 50 MG/10 ML VIAL 10 MG IVPUSH (08:27)
[2024-04-30 08:46] LABS: Influenza A PCR NEGATIVE (Negative); Influenza B PCR NEGATIVE (Negative); Resp Syncy Virus RNA Qual PCR NEGATIVE (Negative); SARS COV2 PCR INHOUSE NEGATIVE (Negative)
[2024-04-30] MEDS: Flecainide Acetate 50 MG TABLET 300 MG PO (08:52)
[2024-04-30 09:00] LABS: INTERNATIONAL NORM RATIO 1.4 (0.9-1.1); Prothrombin Time 17.1 SEC (11.1-13.3)
[2024-04-30 09:28] LABS: TSH reflex Free T4 2.27 uIU/mL (0.32-4.0)
--- NOTE | 2024-04-30 11:21 | PC.NURSE ---
Pt afib on monitor, staying in the 110-130s and low BPs 90/50s, notified, Flecainide 300mg given at 0852. Per MD Moses, when pt is four hours post administration of medications given per DEC, if HR continues to be elevated, cardiology will be contacted. Resting in bed quietly, call fernandez within reach, family at bedside, all needs met at this time.
--- NOTE | 2024-04-30 12:10 | PC.NURSE ---
Cardiology at bedside, plan to wait till 4 hour phil (1300) for Flecainide to see if pt converts on own. If not possible cardioversion.
--- NOTE | 2024-04-30 12:15 | PM.CNCAR ---
History of Present Illness History of Present Illness Date of Service: 04/30/24 Chief complaint: Fast heart rate Narrative: This is a cardiology consultation regarding atrial fibrillation with rapid ventricular response. Patient was seen in November and at that time, he had palpitations and came to the ER. He was found to be in atrial fibrillation rapid ventricular rate. He got flecainide and then converted to sinus rhythm. He states that he was okay. Today morning 07:00 o'clock, he again started having palpitations and is currently in the emergency room. He got flecainide as well as diltiazem in the emergency room but still remains in atrial fibrillation with rapid ventricular rate. Apart from palpitations, no chest pain or shortness of breath or any other complaints. No other major comorbidities. He denies any drugs. Some alcohol use but nothing excessive. Yesterday, had 2 beers. Of note, father has also had some ablation in the past, not clear if it is for atrial fibrillation or SVT. Review of Systems Review of Systems: Yes all other systems are reviewed and are negative Constitutional: Constitutional: Reports as per HPI and Reports no additional constitutional complaints Eyes: Eyes: Reports as per HPI and Denies no additional eye complaints ENT: Denies system reviewed and no additional complaints, except as documented and Reports as per HPI Cardiovascular: Cardiovascular: Reports as per HPI, Reports no additional cardiovascular complaints, Denies acrocyanosis, Denies cool extremities, Denies chest pain, Denies leg edema, Denies lightheadedness, Denies palpitations and Denies dyspnea Respiratory: Respiratory: Reports as per HPI, Denies no additional respiratory complaints and Denies dyspnea Gastrointestinal: Gastrointestinal: Reports as per HPI and Denies no additional gastrointestinal complaints Genitourinary: Genitourinary: Reports no additional male genitourinary complaints and Reports as per HPI Musculoskeletal: Musculoskeletal: Reports no additional musculoskeletal complaints and Reports as per HPI Integumentary/Breasts: Skin/Breast: Reports system reviewed and no additional complaints, except as docu Neurologic: Reports system reviewed and no additional complaints, except as documented and Reports as per HPI Psychiatric: Psychiatric: Reports no additional psychiatric complaints and Reports as per HPI Endocrine: Endocrine: Reports no additional endocrine complaints, Reports as per HPI and Denies palpitations Hematologic/Lymphatic: Hematologic/Lymphatic: Reports no additional hematologic/lymphatic complaints and Reports as per HPI Allergic/Immunologic: Allergic/Immunologic: Reports no additional allergic/immunologic complaints and Reports as per [facility] Past Medical History Medical History (Updated 01/26/24 @ 15:49 by Roxanne Palm NP) Cardiomyopathy No pertinent past medical history Family History Family History (Updated 12/23/23 @ 09:25 by Jameson Ferrara MD) Father Arrhythmia H/O cardiac radiofrequency ablation Social History Social History (Updated 12/23/23 @ 09:25 by Jameson Ferrara MD) Alcohol intake: current Alcohol intake frequency: holidays/special occasions only Alcohol type: beer Patient Tobacco Use Status: Never used Tobacco Advance Directives: No Meds Allergies Allergy/AdvReac Type Severity Reaction Status Date / Time No Known Allergies Allergy Unverified 04/30/24 07:26 [No Known Allergies*] Active Medications: Current Medications Sodium Chloride (Ns) 1,000 mls @ 999 mls/hr IV .Q1H1M STA Stop: 04/30/24 13:13 Physical Exam Vital Signs: Vital Signs: Last Vital Signs Temp 97.9 F 04/30/24 10:42 Pulse 112 H 04/30/24 10:42 Resp 20 04/30/24 10:42 BP 100/65 04/30/24 10:42 Pulse Ox 97 04/30/24 10:42 O2 Del Method Room Air 04/30/24 10:42 BMI result Body Mass Index 30.4 Const: General: comfortable and no acute distress Orientation/consciousness: patient oriented x3 HEENT: Other: Unremarkable Head: Yes normal to inspection Neck: Neck: Yes normal visual inspection Chest: Chest palpation & inspection: normal inspection of the chest Resp: Auscultation: clear to auscultation bilaterally Cardio: Palpation: normal PMI Heart sounds: S1 normal heart sound present, S2 normal heart sound present, no gallops, no murmurs and no rubs GI: Palpation (GI): Soft to palpation Back/Spine/Pelvis: Other: unremarkable Skin: General skin exam: no rashes or lesions noted Neuro: General: patient oriented x3 Extrem: General: Yes normal to inspection Psych: Mental Status: mental status grossly normal Objective Labs and Meds 04/30/24 07:33 04/30/24 07:33 Lab results: Laboratory Results - last 24 hr 04/30/24 04/30/24 07:33 08:40 WBC 6.9 RBC 5.47 Hgb 16.8 Hct 46.2 MCV 84.5 MCH 30.7 MCHC 36.4 H RDW 13.0 Plt Count 250 MPV 9.7 Immature Gran % (Auto) 0.4 Neut % (Auto) 56.2 Lymph % (Auto) 30.8 [place] % (Auto) 10.0 Eos % (Auto) 1.6 Baso % (Auto) 1.0 Lymph # (Auto) 2.1 [place] # (Auto) 0.7 Eos # (Auto) 0.1 Baso # (Auto) 0.1 Abs Immat Gran (auto) 0.03 Absolute Neuts (auto) 3.9 Absolute Nucleated RBC 0.000 Nucleated RBC % (auto) 0.0 PT 17.1 H INR 1.4 H Sodium 141 Potassium 4.2 Chloride 108 Carbon Dioxide 25 Anion Gap 12 BUN 15 Creatinine 0.90 Estim Creat Clear Calc 142.0 Estimated GFR > 60 Random Glucose 95 Calcium 9.5 D Magnesium 2.1 Total Bilirubin 0.7 AST 19 ALT 26 Alkaline Phosphatase 56 Troponin I High Sens < 2.7 Total Protein 7.1 Albumin 4.3 TSH 2.27 Ethyl Alcohol < 10 Influenza Type A (PCR) NEGATIVE Influenza Type B (PCR) NEGATIVE RSV RNA Qual (PCR) NEGATIVE SARS-CoV-2 RNA (RT-PCR) NEGATIVE ECG Interpretation: EKG with atrial fibrillation at a rate of 123/Min. On telemetry, still in atrial fibrillation with rapid rate. Assessment and Plan (1) Atrial fibrillation with rapid ventricular response: Status: Acute (2) Cardiomyopathy: Status: Acute Plan Recurring atrial fibrillation with rapid response and mild cardiomyopathy on echocardiogram. As an outpatient, he is pending cardiac MRI. There is a family history of arrhythmias and father has had ablation. At this time, he is received flecainide as well as IV diltiazem but still in atrial fibrillation rapid rate. May proceed with cardioversion. Suggest giving some anticoagulation with Eliquis as Xarelto. Will need for about 4 weeks after the procedure. Subsequently, EP referral for ablation. Discussed with patient as well as father. Discussed with ER physician. Procedures Date of Service Date of Service: 04/30/24
[2024-04-30] MEDS: Apixaban 5 MG TABLET PO (12:26)
[2024-04-30] MEDS: 0.9 % Sodium Chloride 1,000 ML 999 ML IV (12:30)
--- NOTE | 2024-04-30 12:46 | PC.NURSE ---
Addendum entered by Elly Sher 04/30/24 13:04: Correction Pt self cardioverted Original Note: Pt set up for cardioversion, MD, respiratory, and techs at bedside. Pt converted out of afib into nsr. EKG obtained. Procedure canceled per
[2024-04-30] MEDS: Ketamine HCl/NS 50 MG/5 ML SYRINGE 90.718 MG IVPUSH (14:08)
[2024-04-30] MEDS: fentaNYL citrate/PF 100 MCG/2 ML VIAL IVPUSH (14:08)
--- NOTE | 2024-04-30 14:20 | ECG_ITS ---
Test Reason : afib Blood Pressure : / mmHG Vent. Rate : 118 BPM Atrial Rate : 118 BPM P-R Int : 172 ms QRS Dur : 104 ms QT Int : 326 ms P-R-T Axes : 089 117 027 degrees QTc Int : 456 ms Atrial flutter with rapid ventricular response Right axis deviation Abnormal ECG When compared with ECG of 30-APR-2024 07:28, Atrial flutter has replaced atrial fibrillation Referred By: Kristina Taylor Electronically Signed By:CARL PERRIN
--- NOTE | 2024-04-30 14:42 | PC.NURSE ---
Pt continued to be in Aflutter, decided to do cardioversion per cardiology request. Pt set up for cardioversion, consent form signed, pt medicated per DEC. Pt cardioverted back to normal sinus rhythm, hr 70s. Pt tolerated procedure well, mom brought back into room and updated. Pt remains in normal sinus at this time, o2 at 2L for comfort
[2024-04-30] MEDS: LORazepam 2 MG/ML VIAL 1 MG IVPUSH (15:08)
--- NOTE | 2024-05-01 14:17 | ECG_ITS ---
Test Reason : POST CARDIOVERSION Blood Pressure : / mmHG Vent. Rate : 091 BPM Atrial Rate : 091 BPM P-R Int : 166 ms QRS Dur : 108 ms QT Int : 364 ms P-R-T Axes : 058 105 032 degrees QTc Int : 447 ms Normal sinus rhythm Rightward axis Borderline ECG When compared to the previous EKG of same day, rhythm change Referred By: Kristina Taylor Electronically Signed By:CARL PERRIN
== END 2024-04-30 16:22 | disposition home or self-care (01) ==
PROVIDERS: Emergency Provider Emergency Medicine Emergency Medical Services
DX: I48.91 Unspecified atrial fibrillation (principal); I48.92 Unspecified atrial flutter; R00.2 Palpitations; I42.9 Cardiomyopathy, unspecified; Z03.818 Encounter for observation for suspected exposure to other biological agents ruled out; Z79.899 Other long term (current) drug therapy
CPT/HCPCS: 0241U; 36415; 80053; 80307; 83735; 84443; 84484; 85025; 85610; 92960; 93005; 96361; 96374; 96375; 96376; 99285; J2060; J3010

== ENCOUNTER → 2024-04-30 07:28 | Outpatient (BNV) | payer OTHER, SELFPAY | PROVIDERS: Emergency Provider Emergency Medicine Emergency Medical Services; Visit Provider Internal Medicine | DX: R94.31 Abnormal electrocardiogram [ECG] [EKG] (principal) | CPT/HCPCS: 93010 ==

== ENCOUNTER → 2024-04-30 07:31 | Outpatient (BNV) | payer OTHER, SELFPAY | PROVIDERS: Emergency Provider Emergency Medicine Emergency Medical Services; Visit Provider Internal Medicine | DX: I48.91 Unspecified atrial fibrillation (principal); I42.9 Cardiomyopathy, unspecified | CPT/HCPCS: 99223 ==

== ENCOUNTER → 2024-05-01 14:17 | Outpatient (BNV) | payer OTHER, SELFPAY | PROVIDERS: Emergency Provider Emergency Medicine Emergency Medical Services; Visit Provider Internal Medicine | DX: T81.11XD Postprocedural cardiogenic shock, subsequent encounter (principal) | CPT/HCPCS: 93010 ==

== ENCOUNTER → 2024-05-14 14:52 | Outpatient (BNVA) | payer OTHER, SELFPAY | PROVIDERS: Visit Provider Internal Medicine ==

== ENCOUNTER 2024-07-23 14:43 | Outpatient (AMB) | payer OTHER, SELFPAY ==
--- NOTE | 2024-07-23 14:47 | A.OFFVIS_ITS ---
Vital Signs 07/23/24 14:48 Height 5 ft 8 in Weight 202 lb 13.204 oz BMI 30.8 BP 102/60 Blood Pressure Location Lt brachial Position Sitting Pulse 99 Pulse Source Monitor Intake Visit Reasons: 6 mth fu Allergies No Known Allergies [No Known Allergies*] Allergy (Unverified 04/30/24 07:26) Medication List - Last Reconciled 07/23/24 by Roxanne Palm, ELVA apixaban (Eliquis) 5 mg PO Q12H 30 days flecainide 50 mg PO Q12H 30 days metoprolol tartrate 12.5 mg (1/2 x 25 mg) PO Q12H 30 days HPI Comments Details: 23-year-old male presents today for a follow-up visit. He was seen on 04/30/2024 in the emergency department for atrial fibrillation with RVR. He has a history of atrial fibrillation and cardiomyopathy. He reports he has been doing well. Other than the ED visit he has had no other palpitations. He exercises without difficulty. Denies any chest pains, shortness of breath, syncope, dizziness, swelling, or orthopnea. He had his cardiac MRI. He is compliant with his medications. He avoids caffinene. [facility] Medical History (Updated 05/01/24 @ 00:02 by Sushma Salvador) Cardiomyopathy No pertinent past medical history Family History (Updated 12/23/23 @ 09:25 by Jameson Ferrara MD) Father Arrhythmia H/O cardiac radiofrequency ablation Social History (Updated 12/23/23 @ 09:25 by Jameson Ferrara MD) Alcohol intake: current Alcohol intake frequency: holidays/special occasions only Alcohol type: beer Patient Tobacco Use Status: Never used Tobacco Review of Systems Const Denies weakness ENT Denies dizziness Card Denies chest pain, Denies chest pain with activity, Denies syncope, Denies rapid heart rate, Denies pedal edema, Denies edema, Denies leg edema, Denies lightheadedness, Denies palpitations, Denies dyspnea, Denies dyspnea on exertion and Denies orthopnea Resp Denies cough, Denies dyspnea and Denies dyspnea on exertion GI Denies hematochezia and Denies change in stool character Musc Denies abnormal gait, Denies muscle cramps, Denies muscle weakness, Denies numbness, Denies radiating pain into limb and Denies tingling Neuro Denies abnormal gait, Denies dizziness, Denies syncope, Denies numbness, Denies tingling and Denies weakness Endo Denies palpitations Physical Exam Vital Signs: Last Vital Signs Pulse 99 07/23/24 14:48 BP 102/60 07/23/24 14:48 BMI result Body Mass Index 30.8 Office Procedures EKG Details: EKG today. Normal Sinus Rhythm. Rate 9 bpm. QRS 96ms. QTc 423 ms. OH 136 ms. OH 136 ms. [id number], Complete Results Reviewed Results Reviewed: MRI: IMPRESSION: 1. Mildly dilated left ventricle with normal wall thickness. Globally mildly reduced left ventricular systolic function. LVEF = 46 %. There is mild global hypokinesis with relatively more pronounced hypokinesis of the m id to apical inferoseptal segments. T1 mapping reveals normal global [place] T1 values.. No increased T2 signal to suggest myocardial edema. Post-contrast imaging demonstrates no significant myocardial delayed enhancement.. Findings are consistent with dilated nonischemic cardiomyopathy. 2. Mildly dilated right ventricle with mildly reduced right ventricular systolic function. RVEF = 41 %. 3. The left atrium is normal in size. The right atrium is normal in size. 4. At least mild mitral regurgitation, however the mitral leaflets were not well visualized. Phase contrast flow quantitation to calculate regurgitant volumes was not performed. 5. No pericardial thickening, enhancement, or effusion. Assessment & Plan Assessment & Plan (1) Cardiomyopathy: Code(s): I42.9 - Cardiomyopathy, unspecified Category: Medical (2) Atrial fibrillation with rapid ventricular response: Code(s): I48.91 - Unspecified atrial fibrillation Category: Medical Plan Patient sees electrophysiology at the end of July for a consult regarding ablation. Cardiac MRI findings are consistent with dilated nonischemic cardiomyopathy. Patient is now on flecanide 50mg BID, apixaban 5mg BID, and metoprolol tartrate 12.5 mg BID. Continue all medications. Avoidance of stimulants disucssed. Medications: Refilled apixaban (Eliquis) 5 mg PO Q12H 60 tabs 0RF 30 days flecainide 50 mg PO Q12H 60 tabs 3RF 30 days metoprolol tartrate 12.5 mg (1/2 x 25 mg) PO Q12H 30 tabs 3RF 30 days Coding Level of Care Code Est Pt Level 3 (61755) Diagnoses Cardiomyopathy I42.9 Atrial fibrillation with rapid ventricular response I48.91 CPT Codes EKG - CPT: 07556-Axxozewlfrkiwnzfu, Complete ([id number])
[2024-07-23 14:48] VITALS: BP 102/60; PULSE 99; BMI 30.8
== END 2024-07-23 15:10 | disposition home or self-care (01) ==
PROVIDERS: Visit Provider Nurse Practitioner
DX: I48.91 Unspecified atrial fibrillation (principal)
CPT/HCPCS: 93010; 99213

== ENCOUNTER → 2024-07-23 14:43 | Outpatient (BNVA) | payer OTHER, SELFPAY | PROVIDERS: Visit Provider Nurse Practitioner | DX: I42.9 Cardiomyopathy, unspecified (principal); I48.91 Unspecified atrial fibrillation; Z79.01 Long term (current) use of anticoagulants; Z79.899 Other long term (current) drug therapy | CPT/HCPCS: 93005 ==

== ENCOUNTER 2024-09-23 08:00 | Emergency (ER) | payer OTHER, SELFPAY ==
[2024-09-23] VITALS (12 sets, daily range): BP systolic 101–131; BP diastolic 43–65; PULSE 63–168; RESP 14–20; TEMP 36.4–36.7; O2SAT 98–100; BMI 30.4
--- NOTE | 2024-09-23 | ECG_ITS ---
Test Reason : cardioversion Blood Pressure : / mmHG Vent. Rate : 069 BPM Atrial Rate : 069 BPM P-R Int : 162 ms QRS Dur : 092 ms QT Int : 378 ms P-R-T Axes : 046 068 023 degrees QTc Int : 405 ms Normal sinus rhythm Normal ECG When compared with ECG of 23-SEP-2024 07:56, Sinus rhythm has replaced Atrial fibrillation Vent. rate has decreased BY 69 BPM Referred By: Austen Moses Electronically Signed By:CARL PERRIN
--- NOTE | ~2024-09-23 | XR_ITS ---
EXAMINATION: XR CHEST CLINICAL INFORMATION: afib COMPARISON: Chest radiograph dated 12/23/2023. TECHNIQUE: Frontal view of the chest was obtained. FINDINGS: The lungs are clear. The cardiomediastinal silhouette is normal in size. There is no pleural effusion or pneumothorax. No acute osseous abnormality. XR/XR chest 1V IMPRESSION: No acute cardiopulmonary findings. Electronically signed by: Ishmael Larkin MD 09/23/2024 08:35 AM [facility]
--- NOTE | 2024-09-23 08:01 | ECG_ITS ---
Test Reason : QUESTION AFIB Blood Pressure : / mmHG Vent. Rate : 138 BPM Atrial Rate : 000 BPM P-R Int : 000 ms QRS Dur : 090 ms QT Int : 286 ms P-R-T Axes : 000 076 012 degrees QTc Int : 433 ms Atrial fibrillation with rapid ventricular response Nonspecific ST abnormality Abnormal ECG When compared with ECG of 30-APR-2024 14:17, Atrial fibrillation has replaced Sinus rhythm Vent. rate has increased BY 47 BPM Referred By: Generic ED Physician Electronically Signed By:CARL PERRIN
[2024-09-23 08:36] LABS: MANUAL DIFF FLAG NO
--- NOTE | 2024-09-23 08:36 | ED_ITS ---
HPI - Arrhythmia/Palpitations General Chief Complaint: Arrhythmia/Palpitations Stated Complaint: Afib Time Seen by Provider: 09/23/24 08:30 Source: patient Mode of arrival: ambulatory Limitations: no limitations History of Present Illness ED Provider: Dr. Austen Moses HPI narrative: 23-year-old male with a history of atrial fibrillation, mild cardiomyopathy ( EF of 46% with mild global hypokinesis), followed by our maintenance machine repairer, Dr. Ferrara who presents emergency department for evaluation of palpitations. The patient states that he was seen by his maintenance machine repairer and is scheduled for a ablation in November of 2023. He states that he was told to stop taking his medications (flecanide 50mg BID, apixaban 5mg BID, and metoprolol tartrate 12.5 mg BID). This morning, he woke up and felt his heart was beating fast and irregularly similar to when he has had atrial fibrillation in the past. He denied fever, chills, cough, chest pain, shortness of breath, dyspnea on exertion. He was not had any pain or swelling in his lower extremities and he has not been on a long trips recently. Related Data Previous Rx's ?Medication ?Instructions ?Recorded apixaban 5 mg tablet (Eliquis) 5 mg PO Q12H 30 days #60 tabs 07/23/24 flecainide 50 mg tablet 50 mg PO Q12H 30 days #60 tabs 07/23/24 metoprolol tartrate 25 mg tablet 12.5 mg (1/2 x 25 mg) PO Q12H 30 07/23/24 days #30 tabs apixaban 5 mg tablet (Eliquis) 5 mg PO BID #30 tabs 09/23/24 flecainide 50 mg tablet 50 mg PO Q12H 30 days #60 tabs 09/23/24 metoprolol tartrate 25 mg tablet 12.5 mg (1/2 x 25 mg) PO BID 30 09/23/24 days #30 tabs Allergies Allergy/AdvReac Type Severity Reaction Status Date / Time No Known Allergies Allergy Verified 09/23/24 08:11 [No Known Allergies*] Review of Systems 2 Review of Systems: Yes all other systems are reviewed and are negative [facility] Past Medical History [facility] Narrative: Social history: He denies tobacco use. He states he drinks alcohol on the weekends 2-3 drinks. He denies drug use. Medical History (Updated 09/23/24 @ 11:01 by Austen Moses MD) Cardiomyopathy No pertinent past medical history Family History Family History (Updated 12/23/23 @ 09:25 by Jameson Ferrara MD) Father Arrhythmia H/O cardiac radiofrequency ablation Social History Social History (Updated 12/23/23 @ 09:25 by Jameson Ferrara MD) Alcohol intake: current Alcohol intake frequency: holidays/special occasions only Alcohol type: beer Patient Tobacco Use Status: Never used Tobacco Smoked in Last 30 Days: No Use of substances other than those prescribed or required for medical reasons: No Advance Directives: No Advance Directives Information Provided: Yes Do you have a plan to hurt others: No Plan Physical Exam 2 Vital Signs: Vital Signs: Last Vital Signs Temp 98.0 F 09/23/24 10:14 Pulse 73 09/23/24 10:38 Resp 18 09/23/24 10:38 BP 107/56 L 09/23/24 10:38 Pulse Ox 98 09/23/24 10:38 O2 Del Method Room Air 09/23/24 09:55 Oxygen Flow Rate 1 09/23/24 10:38 BMI result Body Mass Index 30.4 vital signs were normal Exam: General: Awake, alert in no distress Head: Normocephalic, atraumatic EENT: PERRL, Lids normal, sclera normal, conjunctiva normal, nose normal , ears normal, throat without erythema or exudates Neck: Supple, no adenopathy Lung: breath sounds symmetric, no wheezing, rales or rhonchi Chest: symmetric movement, nontender Heart: Rapid irregular irregular rate, no murmurs Abdomen: soft, non-tender, nondistended, normal bowel sounds Back: no vertebral tenderness, no CVAT Extremities: no deformities, moves all extremities symmetrically Neuro: Awake, alert, oriented, normal speech, cranial nerves intact, moves all extremities symmetrically Psych: Pleasant, cooperative Medications Administered Discontinued Medications Generic Name Dose Route Start Last Admin Trade Name Freq PRN Reason Stop Dose Admin Diltiazem HCl 20 mg 09/23/24 08:39 09/23/24 08:46 Diltiazem Hcl 50 Mg/10 Ml Vial IVPUSH 09/23/24 08:40 20 mg STAT STA Administration Fentanyl 50 mcg 09/23/24 09:47 09/23/24 10:34 Fentanyl Citrate/Pf 100 Mcg/2 Ml Vial IVPUSH 09/23/24 09:48 50 mcg ONCE ONE Administration Protocol Propofol 200 mg 09/23/24 09:47 09/23/24 10:35 Propofol 200 Mg/20 Ml Vial IVPUSH 09/23/24 09:48 100 mg ONCE ONE Administration Medical Decision Making Medical Decision Making [facility] Narrative: 23-year-old male with a history of atrial fibrillation, mild cardiomyopathy ( EF of 46% with mild global hypokinesis) stopped his cardiac medications 2 weeks ago, woke up this morning with rapid irregular heart rate/ palpitations. On presentation to the ED patient was in atrial fibrillation with RVR rate of 138 beats per minute. Vital signs were normal. Physical examination revealed rapid irregular heart rate otherwise unremarkable. Differential diagnosis: Includes but is not limited to Atrial fibrillation, atrial flutter, myocardial infarction, myocardial ischemia, electrolyte abnormalities, anemia Course: 10:44 my interpretation patient's laboratory evaluation is as follows: CBC was normal. Coags were normal. Chloride high 110. BUN elevated 17. LFTs were normal. High sensitive troponin I was below detectable limits. Patient was given diltiazem 20 mg IV with sufficient rate control but he did not spontaneously cardiovert. I did discuss the patient's presentation over tiger text with his maintenance machine repairer, Dr. Ferrara who agreed with cardioversion and recommended that the patient be started back on his medications. Patient was given procedural sedation with propofol 100 mg IV and fentanyl 50 mcg IV. he was cardioverted with biphasic cardiovert her 200 joules x1 shock and converted to a sinus rhythm. Patient had no complications from the procedure. He was given his 1st dose of apixaban 5 mg, flecainide 50 mg and metoprolol 12.5 mg orally. I did prescribe these medications for him. Patient was discharged home in the care of his father and was advised to follow-up with he was maintenance machine repairer for re- evaluation. Admission/Observation Consideration of admission/observation: Escalation of care including admission/observation considered Consult Healthcare Provider Management of the patient was discussed with: Treatment Supervisor ( [employer] Electrical Systems Designer, Dr. Ferrara) Lab Data [facility] Lab Attestation statement: I reviewed the patient's lab results. 09/23/24 08:32 09/23/24 08:32 Labs: Lab Results 09/23/24 09/23/24 Range/Units 08:32 08:44 WBC 6.3 (4.8-10.8) X10*3/uL RBC 5.41 (4.60-5.80) X10*6/uL Hgb 16.7 (14.0-18.0) g/dl Hct 45.4 (42.0-52.0) % MCV 83.9 (80.0-98.0) fL MCH 30.9 (27.0-33.0) pg MCHC 36.8 H (31.0-36.0) g/dl RDW 12.9 (11.0-16.0) % Plt Count 269 (160-400) X10*3/uL MPV 9.6 (9.4-12.4) fL Immature Gran % (Auto) 0.8 H (0.0-0.4) % Neut % (Auto) 60.9 (45-73) % Lymph % (Auto) 25.8 (20-40) % Mccracken % (Auto) 10.5 (2-11) % Eos % (Auto) 1.4 (0-4) % Baso % (Auto) 0.6 (0-2) % Lymph # (Auto) 1.6 (1.2-4.9) X10*3/uL Mccracken # (Auto) 0.7 (0.1-1.2) X10*3/uL Eos # (Auto) 0.1 (0.0-0.4) X10*3/uL Baso # (Auto) 0.0 (0.0-0.2) X10*3/uL Abs Immat Gran (auto) 0.05 H (0.00-0.03) X10*3/uL Absolute Neuts (auto) 3.8 (2.0-8.3) x10*3/uL Absolute Nucleated RBC 0.000 (0.0-0.012) X10*3/uL Nucleated RBC % (auto) 0.0 (0.0-0.2) /100WBC PT 10.5 L (10.9-12.4) SEC INR 0.9 (0.9-1.1) APTT 31.4 (26.0-36.8) SEC Sodium 143 (135-145) mmol/L Potassium 4.1 (3.3-5.1) mmol/L Chloride 110 H (96-108) mmol/L Carbon Dioxide 23 (22-29) mmol/L Anion Gap 14 (12-20) BUN 17 H (9-16) mg/dL Creatinine 1.04 (0.5-1.4) mg/dL Estim Creat Clear Calc 122.8 Estimated GFR > 60 Random Glucose 105 (60-115) mg/dL Calcium 9.2 (8.4-10.2) mg/dL Total Bilirubin 0.6 (0.0-1.0) mg/dL AST 24 (5-37) U/L ALT 25 (0-40) U/L Alkaline Phosphatase 55 (39-117) U/L Troponin I High Sens < 2.7 (<3.5-35.0) ng/L Total Protein 7.0 (6.5-8.0) g/dL Albumin 4.2 (3.5-5.0) g/dL Independent Interpretation I performed an independent interpretation of an: EKG Interpretation: my interpretation of EKG 1 done at 07:56 hours is as follows: Atrial fibrillation with a ventricular rate of 138, less than [address] segment depression in 2, 3 and AVF. 1-[address] segment depression V3 through V6, no ST segment elevation, no significant T-wave abnormalities. My independent interpretation of EKG 2. Done at 10:26 hours is as follows: Normal sinus rhythm with a rate of 69, less than [address] segment depression in leads 3 and AVF with no ST segment elevation, no significant T-wave abnormalities, no PACs, no PVCs. Prescription Management I considered prescription management with: Other ( Eliquis, metoprolol, flecainide) Chronic Conditions Patient?s care impacted by: Other ( Paroxysmal atrial fibrillation) Procedures Procedure Narrative Procedure Narrative: Procedural sedation and cardioversion for atrial fibrillation I did discuss the risks and benefits of cardioversion with the patient he did sign the consent form prior to the procedure. The patient was placed on a cardiac, O2 saturation and pulse ox monitor. He was also placed on 2 L of oxygen via nasal cannula. Respiratory therapy in to ED nurses were in the room as well as an contact lens technician. A time-out was performed before the procedure. Patient was given a total of 100 mg of propofol ( 50 mg, 20 mg and 30 mg IV doses) and fentanyl 50 mcg IV. Patient was sufficiently sedated. He was cardioverted with the biphasic cardiovert her at 200 joules. Patient's repeat EKG revealed sinus rhythm. Patient tolerated the procedure well and there were no complications. Patient was observed by ED nurse until he was awake and alert and can be safely discharged. Critical Care Time Critical Care Time Critical Care Time: Yes Total Critical Care Time: 35 Attestation: Critical Care: The patient was critically ill with a high probability of imminent or life threatening deterioration. I spent greater than 30 minutes of discontinuous time evaluating the patient,delivering critical care at the bedside, discussing and evaluating pertinent data with consultants. Critical care time does not include time spent performing separately billable procedures or teaching. Total time spent performing critical care was 35 minutes. Discharge Plan Discharge Clinical Impression: Atrial fibrillation with rapid ventricular response, Encounter for cardioversion procedure Patient Disposition: Home, Self-Care Instructions: A-fib (Atrial Fibrillation) (ED) Additional Instructions: you were given procedural sedation with propofol and fentanyl. these medications are short-acting but we recommend that over the next 24 hours you do not do any strenuous activity, drive, operate heavy machinery, sign any important papers. Please follow the procedural sedation instructions. Your maintenance machine repairer, Dr. Ferrara wants you to restart your medications and I am sending a prescription for these medications to the [facility] on [facility] in [place]. Take Eliquis ( apixaban) 5 mg pills, 1 pill every 12 hours. I did give you 6 refills on this medication it is important that you do not stop this medication. Take Flexeril 50 mg, 1 pill every 12 hours, I did give you 6 refills on this medication, it is important that you do not stop this medication. Take metoprolol 25 mg pills, 1/2 pill every 12 hours, I did give you 6 refills in his medication, it is important we do not stop this medication. Follow-up with your Wind Farm Electrical Systems Designer in 1-2 weeks Please return to the emergency department if your symptoms get worse or if you develop any symptoms that are concerning to you. Prescriptions: New Eliquis 5 mg tablet 5 mg PO BID Qty: 30 6RF flecainide 50 mg tablet 50 mg PO Q12H 30 Days Qty: 60 6RF metoprolol tartrate 25 mg tablet 12.5 mg PO BID 30 Days Qty: 30 6RF No Action Eliquis 5 mg tablet 5 mg PO Q12H 30 Days Qty: 60 0RF flecainide 50 mg tablet 50 mg PO Q12H 30 Days Qty: 60 3RF metoprolol tartrate 25 mg tablet 12.5 mg PO Q12H 30 Days Qty: 30 3RF Referrals: Jameson Ferrara MD [Physician] - 2 weeks ( atrial fibrillation with RVR, known paroxysmal atrial fibrillation and cardiomyopathy, cardioverted in the emergency department, restarted on Eliquis, flecainide and metoprolol) Print Language: Sami
[2024-09-23 08:45] LABS: Basophils Percent Auto 0.6 % (0-2); Eosinophils Absolute Auto 0.1 X10*3/uL (0.0-0.4); Eosinophils Percent Auto 1.4 % (0-4); Hematocrit 45.4 % (42.0-52.0); Hemoglobin 16.7 g/dl (14.0-18.0); Imm Gran Abs Auto 0.05 X10*3/uL (0.00-0.03); Imm Gran Pct Auto 0.8 % (0.0-0.4); Lymphocytes Absolute Auto 1.6 X10*3/uL (1.2-4.9); Lymphocytes Percent Auto 25.8 % (20-40); Mean Corpuscular HGB Conc 36.8 g/dl (31.0-36.0); Mean Corpuscular Hemoglobin 30.9 pg (27.0-33.0); Mean Corpuscular Volume 83.9 fL (80.0-98.0); Mean Platelet Volume 9.6 fL (9.4-12.4); Monocytes Absolute Auto 0.7 X10*3/uL (0.1-1.2); Monocytes Percent Auto 10.5 % (2-11); Neutrophils Absolute Auto 3.8 x10*3/uL (2.0-8.3); Neutrophils Percent Auto 60.9 % (45-73); Platelet Count 269 X10*3/uL (160-400); Red Blood Count 5.41 X10*6/uL (4.60-5.80); Red Cell Distribution Width 12.9 % (11.0-16.0); White Blood Count 6.3 X10*3/uL (4.8-10.8)
[2024-09-23] MEDS: dilTIAZem HCL 50 MG/10 ML VIAL 20 MG IVPUSH (08:46)
[2024-09-23 08:51] LABS: Alanine Aminotransferase 25 U/L (0-40); Albumin Level 4.2 g/dL (3.5-5.0); Alkaline Phosphatase 55 U/L (39-117); Anion Gap 14 (12-20); Aspartate Amino Transferase 24 U/L (5-37); Bilirubin Total 0.6 mg/dL (0.0-1.0); Blood Urea Nitrogen 17 mg/dL (9-16); Calcium 9.2 mg/dL (8.4-10.2); Carbon Dioxide 23 mmol/L (22-29); Chloride 110 mmol/L (96-108); Creatinine Clr Calc Pharmacy 122.8; Estimated Glomerular Filt Rate > 60; Glucose Random 105 mg/dL (60-115); Potassium 4.1 mmol/L (3.3-5.1); Sodium 143 mmol/L (135-145)
[2024-09-23 08:57] LABS: Troponin-I High Sensitivity < 2.7 ng/L (<3.5-35.0)
[2024-09-23 09:02] LABS: INTERNATIONAL NORM RATIO 0.9 (0.9-1.1); Prothrombin Time 10.5 SEC (10.9-12.4)
[2024-09-23 09:05] LABS: Partial Thromboplastin Time 31.4 SEC (26.0-36.8)
[2024-09-23] MEDS: fentaNYL citrate/PF 100 MCG/2 ML VIAL 50 MCG IVPUSH (10:34)
[2024-09-23] MEDS: propofoL 200 MG/20 ML VIAL IVPUSH (10:35)
[2024-09-23] MEDS: Apixaban 5 MG TABLET PO (11:08)
[2024-09-23] MEDS: Metoprolol Tartrate 12.5 MG HALFTAB PO (11:08)
[2024-09-23] MEDS: Flecainide Acetate 50 MG TABLET PO (11:28)
== END 2024-09-23 11:36 | disposition home or self-care (01) ==
PROVIDERS: Emergency Provider Emergency Medicine Emergency Medical Services
DX: I48.91 Unspecified atrial fibrillation (principal); I42.9 Cardiomyopathy, unspecified; Z79.01 Long term (current) use of anticoagulants; Z79.899 Other long term (current) drug therapy
CPT/HCPCS: 36415; 71045; 80053; 84484; 85025; 85610; 85730; 92960; 93005; 96374; 96375; 99285; J2704; J3010

== ENCOUNTER → 2024-09-23 08:01 | Outpatient (BNV) | payer OTHER, SELFPAY | PROVIDERS: Emergency Provider Emergency Medicine Emergency Medical Services; Visit Provider Internal Medicine | DX: R94.31 Abnormal electrocardiogram [ECG] [EKG] (principal) | CPT/HCPCS: 93010 ==

== ENCOUNTER 2024-11-04 14:54 | Outpatient (AMB) | payer OTHER, SELFPAY ==
--- NOTE | 2024-11-04 15:06 | MHC.OFFVIS ---
Vital Signs 11/04/24 15:07 Height 5 ft 8 in Weight 214 lb 4.629 oz BMI 32.6 BP 124/72 Blood Pressure Location Rt brachial Position Sitting Pulse 64 Pulse Source Monitor Intake Visit Reasons: 3m follow up [place] Required: No Allergies No Known Allergies [No Known Allergies*] Allergy (Verified 11/04/24 15:08) Medication List - Last Reconciled 11/04/24 by Jameson Ferrara MD apixaban (Eliquis) 5 mg PO BID flecainide 50 mg PO Q12H 30 days metoprolol tartrate 12.5 mg (1/2 x 25 mg) PO BID 30 days HPI Comments Details: Oct returns for follow-up. He has had 3 episodes of atrial fibrillation requiring ER evaluation. In the initial visit, he got flecainide and converted to sinus rhythm. However, during the 2nd and 3rd visits, he was cardioverted. He has already seen EP and awaiting ablation. There is a family history of possible atrial fibrillation in his father who also required ablation. Otherwise, patient states he feels fine. His ablations coming up later this month. He remains on flecainide, metoprolol, Eliquis. [facility] Medical History (Updated 11/04/24 @ 15:32 by Jameson Ferrara MD) Cardiomyopathy No pertinent past medical history Family History Father Arrhythmia H/O cardiac radiofrequency ablation Social History Alcohol intake: current Alcohol intake frequency: holidays/special occasions only Alcohol type: beer Patient Tobacco Use Status: Never used Tobacco Review of Systems ENT Reports dizziness Card Denies chest pain, Denies chest pain at rest, Denies chest pain with activity, Denies rapid heart rate, Denies pedal edema, Denies edema, Denies leg edema, Denies lightheadedness, Denies palpitations, Denies dyspnea, Denies dyspnea on exertion and Denies orthopnea Resp Denies cough, Denies dyspnea and Denies dyspnea on exertion GI Denies hematochezia and Denies change in stool character Musc Denies abnormal gait, Reports limited range of motion, Reports muscle cramps, Denies muscle weakness, Denies numbness, Denies radiating pain into limb, Denies stiffness and Denies tingling Neuro Denies abnormal gait, Reports dizziness, Denies numbness and Denies tingling Endo Denies palpitations Physical Exam Vital Signs: Last Vital Signs Pulse 64 11/04/24 15:07 BP 124/72 11/04/24 15:07 BMI result Body Mass Index 32.6 Const General: comfortable and no acute distress Orientation/consciousness: patient oriented x3 HEENT Other: Unremarkable Head: Yes normal to inspection Neck Neck: Yes normal visual inspection Chest Chest palpation & inspection: normal inspection of the chest Resp Auscultation: clear to auscultation bilaterally Cardio Palpation: normal PMI Heart sounds: S1 normal heart sound present, S2 normal heart sound present, no gallops, no murmurs and no rubs GI Palpation (GI): Soft to palpation Back/Spine/Pelvis Other: unremarkable Skin General skin exam: no rashes or lesions noted Neuro General: patient oriented x3 Extrem General: Yes normal to inspection Psych Mental Status: mental status grossly normal Office Procedures EKG Details: EKG with underlying sinus rhythm at 64/Min; no significant ST-T changes and otherwise unremarkable[place] [id number], Complete Assessment & Plan Assessment & Plan (1) Paroxysmal atrial fibrillation: Code(s): I48.0 - Paroxysmal atrial fibrillation Category: Medical Plan: Continue metoprolol, flecainide, Eliquis. Await ablation. (2) Cardiomyopathy: Code(s): I42.9 - Cardiomyopathy, unspecified Category: Medical Plan: In the echocardiogram, LVEF is 45-50%. Reduced peak global longitudinal strain at -15.3%. In the cardiac MRI, LVEF is 46%. Suspected dilated nonischemic cardiomyopathy. RVEF also mildly reduced at 41%. Etiology not clear. However, clinically he has got no symptoms. Coding Level of Care Code Est Pt Level 4 (21542) Diagnoses Paroxysmal atrial fibrillation I48.0 Cardiomyopathy I42.9 CPT Codes EKG - CPT: 27558-[id number], Complete ([id number])
[2024-11-04 15:07] VITALS: BP 124/72; PULSE 64; BMI 32.6
== END 2024-11-04 15:26 | disposition home or self-care (01) ==
PROVIDERS: Visit Provider Internal Medicine
DX: I48.0 Paroxysmal atrial fibrillation (principal); I42.9 Cardiomyopathy, unspecified
CPT/HCPCS: 93010; 99214

== ENCOUNTER → 2024-11-04 14:54 | Outpatient (BNVA) | payer OTHER, SELFPAY | PROVIDERS: Visit Provider Internal Medicine | DX: I48.0 Paroxysmal atrial fibrillation (principal); I42.9 Cardiomyopathy, unspecified; Z79.01 Long term (current) use of anticoagulants; Z79.899 Other long term (current) drug therapy | CPT/HCPCS: 93005 ==

== ENCOUNTER 2025-03-01 13:54 | Outpatient (AMB) | payer OTHER, SELFPAY ==
[2025-03-01 14:00] VITALS: BP 108/60; PULSE 66; BMI 31.8
--- NOTE | 2025-03-01 14:00 | MHC.OFFVIS ---
Vital Signs 03/01/25 14:00 Height 5 ft 8 in Weight 209 lb 7.026 oz BMI 31.8 BP 108/60 Blood Pressure Location Lt brachial Position Sitting Pulse 66 Pulse Source Pulse Oximeter Intake Visit Reasons: 4m follow up rs 02/23 Allergies No Known Allergies [No Known Allergies*] Allergy (Verified 11/04/24 15:08) Medication List - Last Reconciled 03/01/25 by Jameson Ferrara MD apixaban (Eliquis) 5 mg PO BID flecainide 50 mg PO Q12H 30 days metoprolol tartrate 12.5 mg (1/2 x 25 mg) PO BID 30 days HPI Comments Details: Oct returns for follow-up. He has had 3 episodes of atrial fibrillation requiring ER evaluation. In the initial visit, he got flecainide and converted to sinus rhythm. However, during the 2nd and 3rd visits, he was cardioverted. Subsequently, seen by EP and had ablation. There is also family history of atrial fibrillation is father who apparently also required ablation. Otherwise, he states he feels good. No new concerns. [facility] Medical History (Updated 11/04/24 @ 15:32 by Jameson Ferrara MD) Cardiomyopathy No pertinent past medical history Family History Father Arrhythmia H/O cardiac radiofrequency ablation Social History Alcohol intake: current Alcohol intake frequency: holidays/special occasions only Alcohol type: beer Patient Tobacco Use Status: Never used Tobacco Review of Systems Const Denies weakness ENT Denies dizziness Card Denies chest pain, Denies chest pain with activity, Denies syncope, Denies rapid heart rate, Denies pedal edema, Denies edema, Denies leg edema, Denies lightheadedness, Denies palpitations, Denies dyspnea, Denies dyspnea on exertion and Denies orthopnea Resp Denies cough, Denies dyspnea and Denies dyspnea on exertion GI Denies hematochezia and Denies change in stool character Musc Denies abnormal gait, Denies muscle cramps, Denies muscle weakness, Denies numbness, Denies radiating pain into limb and Denies tingling Neuro Denies abnormal gait, Denies dizziness, Denies syncope, Denies numbness, Denies tingling and Denies weakness Endo Denies palpitations Physical Exam Vital Signs: Last Vital Signs Pulse 66 03/01/25 14:00 BP 108/60 03/01/25 14:00 BMI result Body Mass Index 31.8 Const General: comfortable and no acute distress Orientation/consciousness: patient oriented x3 HEENT Other: Unremarkable Head: Yes normal to inspection Neck Neck: Yes normal visual inspection Chest Chest palpation & inspection: normal inspection of the chest Resp Auscultation: clear to auscultation bilaterally Cardio Palpation: normal PMI Heart sounds: S1 normal heart sound present, S2 normal heart sound present, no gallops, no murmurs and no rubs GI Palpation (GI): Soft to palpation Back/Spine/Pelvis Other: unremarkable Skin General skin exam: no rashes or lesions noted Neuro General: patient oriented x3 Extrem General: Yes normal to inspection Psych Mental Status: mental status grossly normal Office Procedures EKG Details: EKG with possible junctional rhythm at a rate of 75/Min. Incomplete right bundle[place]. [id number], Complete Assessment & Plan Assessment & Plan (1) Paroxysmal atrial fibrillation: Code(s): I48.0 - Paroxysmal atrial fibrillation Category: Medical Plan: He is status post ablation. With regard to medications, he states he was asked to stop the Eliquis after the current supply gets over. With regard to flecainide, again he can stop. With regard to metoprolol, possibly keep it for a few more months versus stop. We will check with EP. At his age, ideally should be free of medications. We will check a Holter before follow-up visit. In spite of the rhythm possibly junctional, he has got absolutely no concerns or symptoms and with normal physical activity. Again, we will check with EP about that. (2) Cardiomyopathy: Code(s): I42.9 - Cardiomyopathy, unspecified Category: Medical Plan: In the echocardiogram, LVEF is 45-50%. Reduced peak global longitudinal strain at -15.3%. In the cardiac MRI, LVEF is 46%. Suspected dilated nonischemic cardiomyopathy. RVEF also mildly reduced at 41%. Etiology not clear. However, clinically he has got no symptoms. Orders: Orders ECG 3 day holter monitor 3 Months I48.0 - Paroxysmal atrial fibrillation Coding Level of Care Code Est Pt Level 4 (52056) Diagnoses Paroxysmal atrial fibrillation I48.0 Cardiomyopathy I42.9 CPT Codes EKG - CPT: 15058-[id number], Complete ([id number])
--- OUTSIDE RECORDS SUMMARY | 2025-03-01 15:18 | XMS_ITS | Encounter Summary ---
Author Organization [facility] Address [address] [place] [id number] Phone Care Team Providers Care Wet Process Operator Name Role Phone Micheal Dey MD Primary Care Provider [phone] Encounter Details Date Type Department Care Team (Late st Contact Info) Description 06/12/2017 Conversion Encounter [facility] [place] [address] [place] [address] Social History Tobacco Use Types Packs/Day Years Used Date Smoking Tobacco: Never Assessed Sex and Gender Information Value Date Recorded Sex Assigned at Male 06/12/2020 9:20 AM EDT Legal Sex Male 5:01 PM EDT Gender Identity Male 06/12/2020 9:20 AM EDT Sexual Orientation Straight 06/12/2020 9: 20 AM EDT documented as of this encounter Plan of Treatment Not on file documented as of this encounter Visit Diagnoses Not on filedocumented in this encounter Care Teams Wet Process Operator Relationship Specialty Start Date End Date Micheal Dey MD [address] [place] [address] PCP - General 06/06/17 12/23/23 documented as of this encounter
--- OUTSIDE RECORDS SUMMARY | 2025-03-01 15:18 | XMS_ITS | Encounter Summary ---
Author Organization [facility] Address [address] [place] [id number] Phone Care Team Providers Care Assembly Press Operator Name Role Phone Micheal Dey MD Primary Care Provider [phone] Encounter Details Date Type Department Care Team (Late st Contact Info) Description 09/16/2014 Documentation [facility] Family Medicine [address] [place], [place] [id number] Family Medicine, Physician [address] [place], [place] [id number] Social History Tobacco Use Types Packs/Day Years [...] on filedocumented in this encounter Care Teams Assembly Press Operator Relationship Specialty Start Date End Date Micheal Dey MD [address] [facility] [place] [address] PCP - General 06/06/17 12/23/23 documented as of this encounter
--- OUTSIDE RECORDS SUMMARY | 2025-03-01 15:18 | XMS_ITS | Clinical Summary ---
Author Organization [facility] Address [address] [place] [phone] Phone Care Team Providers Care Patient Registration Rep Name Role Phone Unavailable Primary Care Provider Unavailabl e Allergies No known active allergies Medications albuterol HFA (PROAIR HFA) 108 (90 Base) MCG/ACT inhalerIndication s:Mild intermittent asthma, unspecified whether complicated Inhale 2 puffs every 4 (four) hours as needed for wheezing. 2 Units 04/01/2019 Active Active Problems Problem Noted Date Diagnosed Date BMI (body mass index), pediatric, 95-99% for age 1008/03/2010 Mild intermittent asthma without complication Immunizations Immunization Administration Dates Next Due DTP 03/28/2004, 3,04/13/2003,02/09 DTaP 5 2006 H1N1 09/12/2009 HPV Vaccine 9 Valent 11/06/2015 HPV, Quadrivalent 02/15/2015,09/15/2014 Hep A, ped/adol 11/06/2015,09/15/2014 Hep B, ped/adol 06/22/2003,04/13/2003,02/09/2003 Hib (PRP-T) 03/28/2004,04/13/2003,02/09/2003 IPV 2006, 3,04/13/2003,02/09 Influenza Split 09/09/2013, 2,08/06/2011,08/03 Influenza, injectable, quadrivalent 07/31/2016,0 11/06/2015 Influenza, injectable, quadr ivalent, preservative free 10/18/2020,09/18/2019,02/12/2019,02/03,11/06/2015,07/15/2014 Influenza, injectable, trivalent 009,08/09/2008,12/23/2007,08/10 MMR 12/09/2003 MMRV 2006 Meningococcal Conj (Menactra) MCV4P 02/12/2019,1 11/15/2013 Tdap 09/15/2014 Varicella 12/09/2003 Family History Medical History Relation Name Comments Migraines Brother jaime Armstrong Heart disease (Premature) Father jaime Hypertension Father jaime Migraines Father jaime Obesity Half-Brother jaime Archer. No Known Problems Half-Sister jean-claude Arthritis Mother neo Fibromyalgia Mother neo Rachid's thyroiditis Mother neo Thyroid disease Mother neo Asthma Other Autism Other Diabetes Other Hyperlipidemia Other Kidney cancer Other Stroke Other Throat cancer Other Relation Name Status Comments Brother jaime E Alive Brother: Alive and well Father jaime Alive Father: Heart d isease, Arthritis Half-Brother jaime Novoa Alive Half brother (P ): Alive and well Half-Sister jean-claude Alive Half sister (P) : Alive and well Maternal Grandfather Materna l grandfather: stroke , high BP, Trombophilia, Diabetes mellitus Maternal Grandmother Materna l grandmother: High cholesterol , heart disease, Hypothyroidism, Fibromyalgia Mother neo Alive Mother: Thyroid disease Other Family history of Diabetes mellitus, Family history of Autism, Family history of Asthma, Family history of *CVA/Stroke, Family history of Elevated cholesterol, Family history of *Heart Disease, Family history of Obesity Social History Tobacco Use Types Packs/Day Years Used Date Smoking Tobacco: Never Smokeless Tobacco: Never Alcohol Use Standard Drinks/Week Comments Never 0 (1 standard drink = 0.6 oz pur e alcohol) Hunger/Food Answer Date Recorded In the last 12 months, did y ou or your family ever eat less than you felt you should because there wasn't enough money for food? No 06/12/2020 Stable Housing Answer Date Recorded Are you worried that in the next 2 months you may not have stable housing? No 06/12/2020 Transportation Concerns Answer Date Rec orded In the last 12 months, have you or your family ever had to go without healthcare because you didn't have a way to get there? No 06/12/2020 Hazards in Home Answer Date Recorded Think about the place you li ve. Do you have problems with any of the following? Pests (mice or roaches), mold, no/not working smoke detectors, water leaks, no window guards. No 2019 Financing Utilities Answer Date Recorde d In the last 12 months, has t he electric, gas, oil, or water company threatened to shut off your services in your home? No 06/12/2020 Safety at Home Answer Date Recorded Are you or your family worried about feeling saf e in your home? No 06/12/2020 Outside Support Answer Date Recorded Do you feel that you need mo re support from other people or programs to help you care for yourself or your family? No 06/12/2020 Understanding Health Concerns Answer Da te Recorded Do you need help understandi ng your or your child's healthcare needs (diagnosis, medications, plan, etc.)? No 06/12/2020 Financing Health Concerns Answer Date R ecorded In the last 12 months, was t here a time when your child needed to see a doctor or get medications or supplies but could not because of cost? No 06/12/2020 Missing School or Work Answer Date René rded Did you or your child miss s chool or work because of a health problem that could have been avoided? No 06/12/2020 Sex and Gender Information Value Date Recorded Sex Assigned at Male 06/12/2020 9:20 AM EDT Legal Sex Male 5:01 PM EDT Gender Identity Male 06/12/2020 9:20 AM EDT Sexual Orientation Straight 06/12/2020 9: 20 AM EDT Last Filed Vital Signs Vital Sign Reading Time Taken Comments Blood Pressure 118/65 04/17/2021 2:45 PM EDT Pulse 70 04/17/2021 2:45 PM EDT Temperature 36.1 ??C (96.9 ??F) 04/17/2021 2:45 PM ED T Respiratory Rate - - Oxygen Saturation - - Inhaled Oxygen Concentration - - Weight 104 kg (228 lb 6 oz) 04/17/2021 2:45 PM E DT Height 172.1 cm (5' 7.75 ) 04/17/2021 2:45 PM ED T Body Mass Index 34.98 04/17/2021 2:45 PM EDT Plan of Treatment Health Maintenance Due Date Last Done Comments Men B Vaccine (1 of 2 - Standard) 2018 Influenza Vaccines (#1) 2024 10/18/20, 09/18/2019, 02/12/2019, Additional history exists COVID-19 Vaccine (3 - season) 2024 04/17/2021, 03/27/2021 DTaP,Tdap,and Td Vaccines (7 - Td or Tdap) 09/15/2024 09/15/2014, 2006, 03/28/2004, Additional history exists Hepatitis B Vaccines Completed 06/22/2003, 04/13/2003, 02/09/2003 HIB Vaccines Completed 03/28/2004, 03/27, 02/09/2003 IPV Vaccines Completed 2006, 05/28, 04/13/2003, Additional history exists MMR Vaccines Completed 2006, 12/09/2003 Varicella Vaccines Completed 2006, 12/09/2003 HPV Vaccines Completed 11/06/2015, 01/26, 09/15/2014 Hepatitis A Vaccines Completed 11/06/2015, 09/15/20 14 Meningococcal Vaccine Completed 02/12/2019, 014 Pneumococcal Vaccine Aged Out No long er eligible based on patient's age to complete this topic
== END 2025-03-01 14:20 | disposition home or self-care (01) ==
LOC: HO.HCS 13:54
PROVIDERS: Visit Provider Internal Medicine
DX: I48.0 Paroxysmal atrial fibrillation (principal); I42.9 Cardiomyopathy, unspecified
CPT/HCPCS: 93010; 99214

== ENCOUNTER → 2025-03-01 13:54 | Outpatient (BNVA) | payer OTHER, SELFPAY | PROVIDERS: Visit Provider Internal Medicine | DX: I48.0 Paroxysmal atrial fibrillation (principal); I42.9 Cardiomyopathy, unspecified | CPT/HCPCS: 93005 ==

== ENCOUNTER → 2025-05-27 14:27 | Outpatient (REF) | payer OTHER, SELFPAY ==
--- NOTE | 2025-05-27 14:29 | HM_ITS ---
* Total monitoring time 3 days. * Underlying rhythm is sinus with an average rate of 82/Min. * Rare supraventricular ectopy. * Rare ventricular ectopy. * No significant pauses or high-grade AV blocks. * Patient markers used with sinus rhythm and sinus tachycardia. * No diary events. MTDD
--- OUTSIDE RECORDS SUMMARY | 2025-05-27 14:29 | XMS_ITS | Encounter Summary ---
Author Organization [facility] Address [address] [place] [phone] Phone Care Team Providers Care Diamond Expert Name Role Phone Micheal Dey MD Primary Care Provider [phone] Encounter Details Date Type Department Care Team (Late st Contact Info) Description 06/12/2017 Conversion Encounter [facility] [place] [address] [place] [address] Social History Tobacco Use Types Packs/Day Years [...] on filedocumented in this encounter Care Teams Diamond Expert Relationship Specialty Start Date End Date Micheal Dey MD [address] [place] [address] PCP - General 06/06/17 12/23/23 documented as of this encounter
== END ==
LOC: HO.CARD 14:27
PROVIDERS: Visit Provider Internal Medicine
DX: I48.0 Paroxysmal atrial fibrillation (principal)
CPT/HCPCS: 93242

== ENCOUNTER → 2025-05-27 14:29 | Outpatient (BNV) | payer OTHER, SELFPAY | PROVIDERS: Visit Provider Internal Medicine | DX: I47.10 Supraventricular tachycardia, unspecified (principal); I49.3 Ventricular premature depolarization | CPT/HCPCS: 93244 ==

== ENCOUNTER 2025-07-11 14:55 | Outpatient (AMB) | payer OTHER, SELFPAY ==
[2025-07-11 14:59] VITALS: BP 110/62; PULSE 79; BMI 32.8
--- NOTE | 2025-07-11 14:59 | MHC.OFFVIS ---
Vital Signs 07/11/25 14:59 Height 5 ft 8 in Weight 216 lb 0.848 oz BMI 32.8 BP 110/62 Blood Pressure Location Lt brachial Position Sitting Pulse 79 Pulse Source Monitor Intake Visit Reasons: 4 mth f/up-holter Allergies No Known Allergies (No Known Allergies*) Allergy (Verified 11/04/24 15:08) Medication List - Last Reconciled 07/11/25 by Jameson Ferrara MD No Known Home Meds HPI Comments Details: Cameron returns for follow-up. He has had 3 episodes of atrial fibrillation requiring ER evaluation. In the initial visit, he got flecainide and converted to sinus rhythm. However, during the 2nd and 3rd visits, he was cardioverted. Subsequently, seen by EP and had ablation. There is also family history of atrial fibrillation is father who apparently also required ablation. Since last seen, no new concerns and he feels good. [facility] Medical History (Updated 11/04/24 @ 15:32 by Jameson Ferrara MD) Cardiomyopathy No pertinent past medical history Family History Father Arrhythmia H/O cardiac radiofrequency ablation Social History Alcohol intake: current Alcohol intake frequency: holidays/special occasions only Alcohol type: beer Patient Tobacco Use Status: Never used Tobacco Review of Systems Const Denies weakness ENT Denies dizziness Card Denies chest pain, Denies chest pain with activity, Denies syncope, Denies rapid heart rate, Denies pedal edema, Denies edema, Denies leg edema, Denies lightheadedness, Denies palpitations, Denies dyspnea, Denies dyspnea on exertion and Denies orthopnea Resp Denies cough, Denies dyspnea and Denies dyspnea on exertion GI Denies hematochezia and Denies change in stool character Musc Denies abnormal gait, Denies muscle cramps, Denies muscle weakness, Denies numbness, Denies radiating pain into limb and Denies tingling Neuro Denies abnormal gait, Denies dizziness, Denies syncope, Denies numbness, Denies tingling and Denies weakness Endo Denies palpitations Physical Exam Vital Signs: Last Vital Signs Pulse 79 07/11/25 14:59 BP 110/62 07/11/25 14:59 BMI result Body Mass Index 32.8 Const General: comfortable and no acute distress Orientation/consciousness: patient oriented x3 HEENT Other: Unremarkable Head: Yes normal to inspection Neck Neck: Yes normal visual inspection Chest Chest palpation & inspection: normal inspection of the chest Resp Auscultation: clear to auscultation bilaterally Cardio Palpation: normal PMI Heart sounds: S1 normal heart sound present, S2 normal heart sound present, no gallops, no murmurs and no rubs GI Palpation (GI): Soft to palpation Back/Spine/Pelvis Other: unremarkable Skin General skin exam: no rashes or lesions noted Neuro General: patient oriented x3 Extrem General: Yes normal to inspection Psych Mental Status: mental status grossly normal Office Procedures EKG Details: EKG with underlying sinus rhythm at 79/Min; sinus arrhythmias; incomplete right bundle-branch block pattern; [place] [id number], Complete Assessment & Plan Assessment & Plan (1) Paroxysmal atrial fibrillation: Code(s): I48.0 - Paroxysmal atrial fibrillation Category: Medical Plan: Status post pulmonary vein isolation for atrial fibrillation; status post atrial tachycardia ablation. He is off metoprolol, flecainide, Eliquis. Recent Holter was unremarkable. (2) Cardiomyopathy: Code(s): I42.9 - Cardiomyopathy, unspecified Category: Medical Plan: In the echocardiogram, LVEF is 45-50%. Reduced peak global longitudinal strain at -15.3%. In the cardiac MRI, LVEF is 46%. Suspected dilated nonischemic cardiomyopathy. RVEF also mildly reduced at 41%. Etiology not clear. However, clinically he has got no symptoms. We will check echocardiogram in 6 months' time. Orders: Orders CA echo transthoracic complete 6 Months I42.9 - Cardiomyopathy, unspecified Coding Level of Care Code Est Pt Level 4 (95687) Complex EM visit Add On G2211 Diagnoses Paroxysmal atrial fibrillation I48.0 Cardiomyopathy I42.9 CPT Codes EKG - CPT: 36411-[id number], Complete ([id number])
--- OUTSIDE RECORDS SUMMARY | 2025-07-11 20:23 | XMS_ITS | Encounter Summary ---
Author Organization [facility] Address [address] [place] [address] Phone Care Team Providers Care Nat Instructor Name Role Phone Micheal Dey MD Primary Care Provider [phone] Encounter Details Date Type Department Care Team (Late st Contact Info) Description 09/16/2014 Documentation [facility] [place] Family Medicine [address] [place], [place] [id number] Family Medicine, Physician [address] [place] [place] [address] Social History Tobacco Use Types Packs/Day Years [...] on filedocumented in this encounter Care Teams Nat Instructor Relationship Specialty Start Date End Date Micheal Dey MD [address] [facility] [place] [address] PCP - General 06/06/17 12/23/23 documented as of this encounter
--- OUTSIDE RECORDS SUMMARY | 2025-07-11 20:23 | XMS_ITS | Clinical Summary ---
Author Organization [facility] Address [address] [place] [phone] Phone Care Team Providers Care Fishing Vessel Deckhand Name Role Phone Unavailable Primary Care Provider [...] No Known Problems Half-Sister jean-claude Arthritis Mother noe Fibromyalgia Mother neo Rachid's thyroiditis Mother neo [...] 70 04/17/2021 2:45 PM EDT Temperature 36.1 C (96.9 F) 04/17/2021 2:45 PM EDT Respiratory Rate - - Oxygen Saturation - - Inhaled Oxygen Concentration - - Weight 104 kg (228 lb 6 oz) 04/17/2021 2:45 PM E DT Height 172.1 cm (5' 7.75 ) 04/17/2021 2:45 PM ED T Body Mass Index 34.98 04/17/2021 2:45 PM EDT Plan of Treatment Health Maintenance Due Date Last Done Comments Men B Vaccine (1 of 2 - Standard) 2018 DTaP,Tdap,and Td Vaccines (7 - Td or Tdap) 09/15/2024 09/15/2014, 2006, 03/28/2004, Additional history exists Influenza Vaccines (#1) 2025 10/18/20, 09/18/2019, 02/12/2019, Additional history exists COVID-19 Vaccine ( - season) 2025 04/17/2021, 03/27/2021 Hepatitis B Vaccines Completed 06/22/2003, 04/13/2003, 02/09/2003 [...]
--- OUTSIDE RECORDS SUMMARY | 2025-07-11 20:23 | XMS_ITS | Encounter Summary ---
Author Organization [facility] Address [address] [place] [address] Phone Care Team Providers Care Radiology Nurse Name Role Phone Micheal Dey MD Primary Care Provider [phone] Encounter Details Date Type Department Care Team (Late st Contact Info) Description 06/12/2017 Conversion Encounter [facility] [place] [address] [place] [address] Social History Tobacco Use Types Packs/Day Years [...] on filedocumented in this encounter Care Teams Radiology Nurse Relationship Specialty Start Date End Date Micheal Dey MD [address] [place] [address] PCP - General 06/06/17 12/23/23 documented as of this encounter
== END 2025-07-11 15:18 | disposition home or self-care (01) ==
LOC: HO.HCS 14:56
PROVIDERS: Visit Provider Internal Medicine
DX: I48.0 Paroxysmal atrial fibrillation (principal); I42.9 Cardiomyopathy, unspecified
CPT/HCPCS: 93010; 99214; G2211

== ENCOUNTER → 2025-07-11 14:55 | Outpatient (BNVA) | payer OTHER, SELFPAY | PROVIDERS: Visit Provider Internal Medicine | DX: I48.0 Paroxysmal atrial fibrillation (principal) | CPT/HCPCS: 93005 ==